=== PATIENT | female | born 1945 | race Caucasian/White ===

== ENCOUNTER 2019-04-04 14:03 | Outpatient (CLI) | payer MEDICARE, SELFPAY ==
--- NOTE | ~2019-04-04 | MM_ITS ---
EXAMINATION: MM screening [facility] BI w artemio HISTORY: Screening mammogram TECHNIQUE: Craniocaudal and mediolateral oblique 3-D tomosynthesis images were obtained and synthetic 2-D images were generated. CAD analysis was submitted and interpreted. COMPARISON: 10/19/2017, 09/02/2016, 08/07/2015 BREAST PARENCHYMAL COMPOSITION: The breasts are almost entirely fatty. FINDINGS: There are oil cysts of the upper inner left breast. There is no evidence of suspicious mass , calcification, or architectural distortion to suggest malignancy in either breast. There has been n o suspicious interval change. IMPRESSION: 1. No mammographic evidence of malignancy. 2. Recommend routine screening mammography in one year. BI-RADS Category 2: Benign finding(s). Reviewed, dictated and finalized at location A. O GAME CREATOR
== END 2019-04-04 14:04 | disposition home or self-care (01) ==
LOC: ANHIMG 14:07
PROVIDERS: PCP Emergency Medicine; Visit Provider Emergency Medicine
DX: Z12.31 Encounter for screening mammogram for malignant neoplasm of breast (principal)
CPT/HCPCS: 77063; 77067

== ENCOUNTER 2019-07-20 10:57 | Outpatient (CLI) | payer MEDICARE, SELFPAY ==
--- NOTE | 2019-07-20 11:13 | ECG_ITS ---
Measurements Intervals [place] Rate: 58 P: 62 MO: 149 QRS: 5 QRSD: 86 T: -16 QT: 401 QTc: 396 Interpretive Statements SINUS BRADYCARDIA LOW QRS VOLTAGE IN PRECORDIAL LEADS EARLY PRECORDIAL R/S TRANSITION ST-T WAVE ABNORMALITY IN ANTERIOR LEADS- CONSIDER ISCHEMIA BASELINE ARTIFACT- I, II, AVR, AVF ABNORMAL ECG Electronically Signed On 07-20-2019 12:42:59 CDT by Bubba Morales D.O.
== END 2019-07-20 10:58 | disposition home or self-care (01) ==
PROVIDERS: PCP Emergency Medicine; Visit Provider Emergency Medicine
DX: R00.2 Palpitations (principal)
CPT/HCPCS: 93005

== ENCOUNTER 2020-04-28 08:33 | Outpatient (CLI) | payer MEDICARE, SELFPAY ==
--- NOTE | ~2020-04-28 | MM_ITS ---
EXAMINATION: MM screening [facility] BI w artemio HISTORY: Screening TECHNIQUE: Craniocaudal and mediolateral oblique 3-D tomosynthesis images were obtained and synthetic 2-D images were generated. CAD analysis was submitted and interpreted. COMPARISON: Comparison to multiple prior studies sequentially, with oldest reviewed study dated 05/10. BREAST PARENCHYMAL COMPOSITION: The breasts are almost entirely fatty. FINDINGS: There is no evidence of suspicious mass, calcification, or architectural distortion to sugg est malignancy in either breast. There has been no suspicious interval change. IMPRESSION: 1. No mammographic evidence of malignancy. 2. Recommend routine screening mammography in one year. BI-RADS Category 1: Negative Reviewed, dictated and finalized at location A.
== END 2020-04-28 08:34 | disposition home or self-care (01) ==
LOC: ANHIMG 08:35
PROVIDERS: PCP Emergency Medicine; Visit Provider Emergency Medicine
DX: Z12.31 Encounter for screening mammogram for malignant neoplasm of breast (principal)
CPT/HCPCS: 77063; 77067

== ENCOUNTER 2020-06-09 10:02 | Outpatient (CLI) | payer MEDICARE, SELFPAY | END 2020-06-09 10:03 | disposition home or self-care (01) | LOC: ANHCOVIDVC 10:02 | PROVIDERS: PCP Emergency Medicine | DX: Z23 Encounter for immunization (principal) | CPT/HCPCS: 0001A; 91300 ==

== ENCOUNTER 2020-06-30 10:00 | Outpatient (CLI) | payer MEDICARE, SELFPAY | END 2020-06-30 10:01 | disposition home or self-care (01) | LOC: ANHCOVIDVC 10:00 | PROVIDERS: PCP Emergency Medicine | DX: Z23 Encounter for immunization (principal) | CPT/HCPCS: 0002A; 91300 ==

== ENCOUNTER 2021-02-25 09:29 | Outpatient (CLI) | payer MEDICARE, SELFPAY ==
--- NOTE | 2021-02-25 09:45 | ECG_ITS ---
Measurements Intervals [place] Rate: 59 P: 55 [place]: 144 QRS: -3 QRSD: 81 T: 5 QT: 389 QTc: 386 Interpretive Statements SINUS BRADYCARDIA LOW QRS VOLTAGE IN PRECORDIAL LEADS BORDERLINE ST-T WAVE ABNORMALITY- ANT/INF LEADS BASELINE WANDER- II, III BORDERLINE ECG Electronically Signed On 02-25-2021 10:05:20 [employer] by Bubba Morales D.O.
== END 2021-02-25 09:30 | disposition home or self-care (01) ==
PROVIDERS: PCP Emergency Medicine; Visit Provider Emergency Medicine
DX: R00.2 Palpitations (principal); R00.1 Bradycardia, unspecified
CPT/HCPCS: 93005

== ENCOUNTER 2021-06-12 13:28 | Emergency (ER) | payer MEDICARE, SELFPAY ==
--- NOTE | ~2021-06-12 | XR_ITS ---
EXAMINATION:XR cervical spine 4-5V DATE: 06/12/2021 14:04 INDICATION: Neck pain after fall TECHNIQUE: AP, lateral, lateral swimmers and odontoid views of the cervical spine are provided. COMPARISON: None FINDINGS: Alignment is normal. The odontoid is intact. No fracture is identified. The vertebral body heights are maintained. There is mild loss of intervertebral disc space height from C3-4 through C6-7 . Small degenerative osteophytes project from the anterior endplates of multiple vertebral bodies. 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 Prevertebral soft tissu es are normal. IMPRESSION: 1. Moderate cervical spondylosis without acute findings. Reviewed, dictated and finalized at location B.
[2021-06-12 13:35] VITALS: BP 136/65; PULSE 65; RESP 16; TEMP 36.3; O2SAT 98
--- NOTE | 2021-06-12 13:35 | ED.HEATRA ---
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 She states she slipped out of her shoe, sat down, and rolled backwards striking her head on the driveway pavement. She denies loss of consciousness. States she is starting to feel a headache at the base of her skull and some mild neck pain. She has a history of migraines and states this pain is minimal approximately 2 out of 10. She endorses having the sensation of chills which brought her to be evaluated. She states she had 1 episode of lightheadedness while checking in for her visit. She denies associated nausea, vomiting, confusion, unsteady gait, vision changes, tinnitus, numbness, weakness, tingling of the extremities. She has not taken anything for pain. She is not on anticoagulation. Related Data Home Medications Medication Instructions Recorded Confirmed flaxseed oil-omega 3,6,9-fatty See Rx Instructions .ROUTE .COMPLEX 07/18/19 acids 1,200 mg-540 mg-132 mg capsule vmlhqaztfkk-[id number]-gil C-Mn 500 See Rx Instructions .ROUTE .COMPLEX 07/18/19 mg-400 mg capsule Allergies Allergy/AdvReac Type Severity Reaction Status Date / Time codeine Allergy Unknown unknown Verified 02/25/21 09:14 Review of Systems Review of Systems: CONSTITUTIONAL: Denies body aches, fever EYES: Denies visual changes ENT: Denies rhinorrhea, congestion, sore throat, or otalgia. CARDIOVASCULAR: Denies chest pain, palpitations, or edema. RESPIRATORY: Denies cough or dyspnea. GASTROINTESTINAL: Denies abdominal pain, nausea, vomiting, or diarrhea. GENITOURINARY: Denies dysuria or hematuria. SKIN: Denies rash, itching, or wounds. MUSCULOSKELETAL: Denies back pain, joint pain, or myalgia. NEUROLOGIC: Endorses headache, denies numbness, tingling, or weakness, dizziness PSYCH: Denies depression or anxiety. All systems reviewed & are unremarkable except as noted in HPI and below PMFSH Past Medical History Medical History Hypertension Family History Family History Father Diabetes mellitus, Onset Age: 72 Mother Hypertension, Onset Age: 98 Social History Social History Social History: Patient does not drink caffeine or exercise. Smoking status: Never smoker Second hand tobacco smoke exposure: No Alcohol intake: never Substance use: never Substance use type: does not use Additional living arrangements comments: Gender identity (if verbalized by the patient): Female Sexual Orientation (if Verbalized by the Patient): Straight or Heterosexual Comments At time of signature, I have reviewed and agree with nursing past medical, surgical, social and family history unless otherwise noted. Please see nursing chart for further information. There is no relevant family history pertinent to the presenting complaint Exam Narrative: GENERAL: Well-appearing HEAD: Normocephalic, atraumatic. EYES: PERRLA, EOMI. ENT: Mucous membranes pink and moist. No rhinorrhea. TMs normal bilaterally. NECK: Normal AROM. Supple. No vertebral point tenderness. Full range of motion. CHEST: No respiratory distress. Clear to auscultation. HEART: Regular rate and rhythm. No murmur appreciated. Normal peripheral pulses. ABDOMEN: Soft, nontender, nondistended, normal active bowel sounds. MUSCULOSKELETAL: No bony tenderness. EXTREMITIES: Normal range of motion. No edema. SKIN: Warm, dry, no rash. Capillary refill normal. Normal skin turgor. NEURO:No focal defici
[2021-06-12] MEDS: ACETAMINOPHEN 500 MG TABLET 1000 MG PO (13:53)
== END 2021-06-12 14:53 | disposition home or self-care (01) ==
PROVIDERS: Emergency Provider Nurse Practitioner Family; PCP Emergency Medicine
DX: S00.03XA Contusion of scalp, initial encounter (principal); W01.0XXA Fall on same level from slipping, tripping and stumbling without subsequent striking against object, initial encounter; I10 Essential (primary) hypertension
CPT/HCPCS: 72050; 99213; A9270; G0463

== ENCOUNTER 2021-07-01 09:11 | Outpatient (CLI) | payer MEDICARE, SELFPAY ==
--- NOTE | ~2021-07-01 | MM_ITS ---
EXAMINATION: MM screening [facility] BI w artemio HISTORY: Screening mammogram TECHNIQUE: Craniocaudal and mediolateral oblique 3-D tomosynthesis images were obtained and synthetic 2-D images were generated. CAD analysis was submitted and interpreted. COMPARISON: 04/28/2020, 04/04/2019 BREAST PARENCHYMAL COMPOSITION: The breasts are almost entirely fatty. FINDINGS: Oil cysts are again noted in the left breast. There is no suspicious mass, calcification, o r architectural distortion to suggest malignancy in either breast. There has been no suspicious inter milena change. IMPRESSION: 1. No mammographic evidence of malignancy. 2. Recommend routine screening mammography in one year. BI-RADS Category 2: Benign finding(s). Reviewed, dictated and finalized at location A.
== END 2021-07-01 09:12 | disposition home or self-care (01) ==
LOC: ANHIMG 09:14
PROVIDERS: PCP Emergency Medicine; Visit Provider Emergency Medicine
DX: Z12.31 Encounter for screening mammogram for malignant neoplasm of breast (principal)
CPT/HCPCS: 77063; 77067

== ENCOUNTER → 2021-08-22 00:19 | Outpatient (CLI) | payer MEDICARE, SELFPAY ==
[2021-08-22 11:13] LABS: SARS-CoV-2 RNA PCR Negative
== END ==
PROVIDERS: PCP Emergency Medicine; Visit Provider Emergency Medicine
DX: R11.0 Nausea (principal); R50.9 Fever, unspecified; R51.9 Headache, unspecified; R53.83 Other fatigue; Z20.822 Contact with and (suspected) exposure to COVID-19
CPT/HCPCS: C9803; U0003; U0005

== ENCOUNTER 2021-09-11 16:15 | Emergency (ER) | payer MEDICARE, SELFPAY ==
[2021-09-11 16:24] VITALS: BP 116/73; PULSE 102; RESP 16; TEMP 37.3; O2SAT 96
--- NOTE | 2021-09-11 16:36 | ED.FEMALEGU ---
HPI - Female Genitourinary General Chief complaint: Urogenital-Female Stated complaint: poss uti Time Seen by Provider: 09/11/21 16:36 Source: patient Mode of arrival: ambulatory Limitations: no limitations History of Present Illness HPI Narrative: 76 yo F presents with c/o dysuria starting yesterday evening. Concerned she has another UTI. Was just treated by PCP for UTI 08/19. Took macrobid. Denies fever/chills. No N/V. No ABD or back pain. All systems reviewed and negative except as noted above. Related Data Home Medications Medication Instructions Recorded Confirmed flaxseed oil-omega 3,6,9-fatty See Rx Instructions .Route .COMPLEX 07/18/19 07/07/21 acids 1,200 mg-540 mg-132 mg capsule [id number]-[id number] C-Mn 500 See Rx Instructions .Route .COMPLEX 07/18/19 07/07/21 mg-400 mg capsule (Glucosamine Chondroitin Maximum Strength) calcium carbonate 500 mg-vitamin tablet PO BID 07/07/21 07/07/21 D3 15 mcg (600 unit) tablet magnesium 250 mg tablet 250 mg PO DAILY 07/07/21 07/07/21 nut. tx for PKU, no.49 2 gram-34 ea PO BID 07/07/21 07/07/21 kcal/100 mL oral liquid (Glytactin Restore 10 PE) Allergies Allergy/AdvReac Type Severity Reaction Status Date / Time codeine Allergy Unknown unknown Verified 09/11/21 16:40 Review of Systems Review of Systems: CONSTITUTIONAL: Denies fever, chills, or sweats. EYES: Denies visual changes, redness, or discharge. ENT: Denies rhinorrhea, congestion, sore throat, or otalgia. CARDIOVASCULAR: Denies chest pain, palpitations, or edema. RESPIRATORY: Denies cough or dyspnea. GASTROINTESTINAL: Denies abdominal pain, nausea, vomiting, or diarrhea. GENITOURINARY: Reports dysuria and intermittent hematuria. SKIN: Denies rash or itching. MUSCULOSKELETAL: Denies back pain, joint pain, or myalgia. NEUROLOGIC: Denies headache, numbness, or weakness. PSYCHIATRIC: Denies anxiety or depression. All other systems reviewed are negative, except as documented in HPI. [facility] Past Medical History Medical History Hypertension Migraine Surgical History Surgical History History of cholecystectomy History of endometrial ablation History of salpingo-oophorectomy Family History Family History Father Diabetes mellitus, Onset Age: 72 Mother Hypertension, Onset Age: 98 Social History Social History Social History: Patient does not drink caffeine or exercise. Smoking status: Never smoker Second hand tobacco smoke exposure: No Alcohol intake: never Substance use: never Substance use type: does not use Additional living arrangements comments: Gender identity (if verbalized by the patient): Female Sexual Orientation (if Verbalized by the Patient): Straight or Heterosexual Comments At time of signature, agree with nursing past medical, surgical, social and family history. There is no relevant family history pertinent to the presenting complaint. Exam Narrative: GENERAL: This is a well-nourished, well-developed patient, in no apparent distress. HEAD: normocephalic, atraumatic. EYES: PERRL. Sclera clear/white. Vision is grossly intact. EARS: External ears normal NOSE: External nose normal NECK: Neck supple, non-tender without lymphadenopathy, masses or thyromegaly. CARDIOVASCULAR: Regular rate and rhythm without murmurs, gallops, or rubs. RESPIRATORY: Clear to auscultation. Breath sounds equal bilaterally. No wheezes, rales, or rhonchi. SKIN: warm, Dry, intact with no suspicious lesions or rash, good texture and turgor. NEURO: awake, alert, and oriented to person, place and time. There were no obvious focal neurologic abnormalities. EXTREMITIES: No joint tenderness, effusion, or edema noted. Course Course
== END 2021-09-11 16:56 | disposition home or self-care (01) ==
PROVIDERS: Emergency Provider Nurse Practitioner Family; PCP Emergency Medicine
DX: N39.0 Urinary tract infection, site not specified (principal); I10 Essential (primary) hypertension
CPT/HCPCS: 81003; 87086; 99213; G0463

== ENCOUNTER 2021-10-18 09:42 | Emergency (ER) | payer MEDICARE, SELFPAY ==
--- NOTE | 2021-10-18 09:46 | ED.URI ---
HPI - URI/Sore Throat General Chief Complaint: Upper Respiratory Infection Stated Complaint: sinus infection Time Seen by Provider: 10/18/21 09:47 Source: patient Mode of arrival: ambulatory Limitations: no limitations History of Present Illness HPI Narrative: Ms. Holguin is a 76-year-old female patient presenting to the clinic today with complaints of possible sinus infection x1 week. She reports she has had a lot of sinus pressure on the right side of her face that is causing some dental pain and pressure. She denies any fever or chills. She is reports that she started out with a runny nose. She denies any known exposure to anybody with COVID, flu, or strep. MD elicited complaint: nasal congestion and sinus pain Related Data Allergies Allergy/AdvReac Type Severity Reaction Status Date / Time codeine Allergy Unknown unknown Verified 10/18/21 09:56 Review of Systems Review of Systems: Pertinent positives per HPI. Patient denies any fever, chills, rash, headache, visual changes, dizziness, cough, shortness of breath, chest pain, palpitations, nausea, vomiting, diarrhea, constipation, abdominal pain, or any urinary issues. [facility] Past Medical History Medical History Hypertension Migraine Surgical History Surgical History History of cholecystectomy History of endometrial ablation History of salpingo-oophorectomy Family History Family History Father Diabetes mellitus, Onset Age: 72 Mother Hypertension, Onset Age: 98 Social History Social History Social History: Patient does not drink caffeine or exercise. Smoking status: Never smoker Second hand tobacco smoke exposure: No Alcohol intake: never Substance use: never Substance use type: does not use Additional living arrangements comments: Gender identity (if verbalized by the patient): Female Sexual Orientation (if Verbalized by the Patient): Straight or Heterosexual Comments At the time of my signature, I reviewed and agree with the nursing past medical, surgical, social, and family history. There is no relevant family history pertinent to the patient complaint. Exam Narrative: General: Well-developed, well nourished, in no apparent distress Head: Normocephalic, atraumatic Eyes: Pupils equally round and reactive to light bilaterally, EOM intact, sclera and conjunctive clear, no discharge, lids normal Ears: TMs intact and clear, ear canals clear, no drainage, grossly hearing normal. Nose: Nares patent, clear nasal discharge, moderate inflammation, sinus tenderness to the right ethmoid and maxillary sinuses Mouth: Oral pharynx without lesions or masses, good dentition, MMM. Postnasal drip Neck: Supple, trachea midline, no enlargement of anterior or posterior cervical nodes, no thyroid masses or goiter palpable. Cardio: Regular rate and rhythm, s1 and s2 normal, no murmur appreciated. Resp: Clear to auscultation bilaterally, no rhonchi, rales, wheezing or rubs Course Course Emergency Course: Portions of this record may have been created with voice recognition software. Level of Care: Express Care Visit Vital Signs Vital signs: Vital signs reviewed MDM - URI/Sore Throat MDM Narrative Medical decision making narrative: At the time of visit patient was resting comfortably on the exam table. She has sinus tenderness x1 week with nasal congestion. Reports that she is going out on a trip. Discussed that we do not normally treat sinusitis until after 10 days however we will go ahead and give her a prescription for some Augmentin and prednisone and she can start up the prednisone if not better in 3 days she can begin the Augmentin. She voiced understanding of this and
[2021-10-18 09:48] VITALS: BP 118/55; PULSE 62; RESP 16; TEMP 36.8; O2SAT 100
== END 2021-10-18 10:08 | disposition home or self-care (01) ==
PROVIDERS: Emergency Provider Nurse Practitioner Family; PCP Emergency Medicine
DX: J01.00 Acute maxillary sinusitis, unspecified (principal); I10 Essential (primary) hypertension
CPT/HCPCS: 99213; G0463

== ENCOUNTER 2022-03-22 08:06 | Emergency (ER) | payer MEDICARE, SELFPAY ==
--- NOTE | 2022-03-22 08:13 | ED.URI ---
HPI - URI/Sore Throat General Chief Complaint: Upper Respiratory Infection Stated Complaint: sore throat Time Seen by Provider: 03/22/22 08:13 Source: patient and RN notes reviewed History of Present Illness HPI Narrative: patient is a 77-year-old female who presents to urgent care with complaints of a sore throat. Patient states that it started yesterday. Patient also reports of a fever of 102 F yesterday. Patient reports of a headache today. States that she did have a positive exposure to strep, her grandson. No other acute complaints. No acute distress noted. Patient aware of the plan of care. Some parts of this dictation were generated by voice recognition software and may contain typographical and/or grammatical inaccuracies. Related Data Allergies Allergy/AdvReac Type Severity Reaction Status Date / Time codeine Allergy Unknown unknown Verified 03/22/22 08:18 Review of Systems Review of Systems: CONSTITUTIONAL: Denies fever, chills, or sweats. EYES: Denies visual changes, redness, or discharge. ENT: Denies rhinorrhea, congestion, otalgia. Reports of sore throat CARDIOVASCULAR: Denies chest pain, palpitations, or edema. RESPIRATORY: Denies cough or dyspnea. GASTROINTESTINAL: Denies abdominal pain, nausea, vomiting, or diarrhea. GENITOURINARY: Denies dysuria or hematuria. SKIN: Denies rash or itching. MUSCULOSKELETAL: Denies back pain, joint pain, or myalgia. NEUROLOGIC: Denies headache, numbness, or weakness. All other systems reviewed are negative, except as documented in HPI. [facility] Past Medical History Medical History Hypertension Migraine Surgical History Surgical History History of cholecystectomy History of endometrial ablation History of salpingo-oophorectomy Family History Family History Father Diabetes mellitus, Onset Age: 72 Mother Hypertension, Onset Age: 98 Social History Social History Social History: Patient does not drink caffeine or exercise. Smoking status: Never smoker Second hand tobacco smoke exposure: No Alcohol intake: current Alcohol use details: rarely Substance use: never Substance use type: does not use Living arrangements: with family Additional living arrangements comments: Occupation/Education: retired Gender identity (if verbalized by the patient): Female Sexual Orientation (if Verbalized by the Patient): Straight or Heterosexual Comments At the time of my signature, I reviewed and agree with the nursing past medical, surgical, social, and family history. There is no relevant family history pertinent to the patient complaint. Exam Narrative: GENERAL: This is a well-nourished, well-developed patient, in no apparent distress. HEAD: normocephalic, atraumatic. EYES: PERRL. Sclera clear/white. Vision is grossly intact. EARS: External ears normal, auditory canals clear and without drainage, TMs normal without perforation. Hearing grossly intact. NOSE: External nose normal with no obvious nasal discharge, nares without redness, no rhinorrhea. THROAT: Mucous membranes moist, Mild erythema to posterior pharynx with mild postnasal drainage NECK: Neck supple, mild tender left submandibular lymphadenopathy CARDIOVASCULAR: Regular rate and rhythm without murmurs, gallops, or rubs. RESPIRATORY: Clear to auscultation. Breath sounds equal bilaterally. No wheezes, rales, or rhonchi. SKIN: warm, intact with no suspicious lesions or rash, good texture and turgor. NEURO: awake, alert, and oriented to person, place and time. There were no obvious focal neurologic abnormalities. EXTREMITIES: No clubbing, cyanosis, or edema. Course Course Level of Care: Express Care Visit Vital Signs Vital signs: Vital Si
[2022-03-22 08:20] VITALS: BP 152/44; PULSE 104; RESP 18; TEMP 37; O2SAT 99
== END 2022-03-22 08:33 | disposition home or self-care (01) ==
PROVIDERS: Emergency Provider Nurse Practitioner Family; PCP Emergency Medicine
DX: J02.0 Streptococcal pharyngitis (principal); I10 Essential (primary) hypertension
CPT/HCPCS: 87880; 99213; G0463

== ENCOUNTER 2022-05-31 11:34 | Emergency (ER) | payer MEDICARE, SELFPAY ==
--- NOTE | 2022-05-31 11:43 | ED.NECK ---
HPI - Neck Pain/Injury General Chief Complaint: Neck Pain/Injury Stated Complaint: Neck Pain Time Seen by Provider: 05/31/22 11:46 Source: patient and RN notes reviewed History of Present Illness HPI Narrative: Patient is a 77-year-old female who presents to the Urgent Care with complaints of right-sided neck pain. Patient states her granddaughter ran into her and she picked her up either or Tuesday and she has had the pain since then. Denies any known injury. Denies any vision change or headaches. Patient has been taking ibuprofen for the pain. No other acute complaints. No acute distress noted. Patient aware of the plan of care. Some parts of this dictation were generated by voice recognition software and may contain typographical and/or grammatical inaccuracies. Related Data Allergies Allergy/AdvReac Type Severity Reaction Status Date / Time codeine Allergy Unknown unknown Verified 03/22/22 08:18 Review of Systems Review of Systems: CONSTITUTIONAL: Denies fever, chills, or sweats. EYES: Denies visual changes, redness, or discharge. ENT: Denies rhinorrhea, congestion, sore throat, or otalgia. Reports of right-sided neck pain/stiffness CARDIOVASCULAR: Denies chest pain, palpitations, or edema. RESPIRATORY: Denies cough or dyspnea. GASTROINTESTINAL: Denies abdominal pain, nausea, vomiting, or diarrhea. GENITOURINARY: Denies dysuria or hematuria. SKIN: Denies rash or itching. MUSCULOSKELETAL: Denies back pain, joint pain, or myalgia. NEUROLOGIC: Denies headache, numbness, or weakness. All other systems reviewed are negative, except as documented in HPI. [facility] Past Medical History Medical History Hypertension Migraine Surgical History Surgical History History of cholecystectomy History of endometrial ablation History of salpingo-oophorectomy Family History Family History Father Diabetes mellitus, Onset Age: 72 Mother Hypertension, Onset Age: 98 Social History Social History Social History: Patient does not drink caffeine or exercise. Smoking status: Never smoker Second hand tobacco smoke exposure: No Alcohol intake: current Alcohol use details: rarely Substance use: never Substance use type: does not use Living arrangements: with family Additional living arrangements comments: Occupation/Education: retired Gender identity (if verbalized by the patient): Female Sexual Orientation (if Verbalized by the Patient): Straight or Heterosexual Comments At the time of my signature, I reviewed and agree with the nursing past medical, surgical, social, and family history. There is no relevant family history pertinent to the patient complaint. Exam Narrative: GENERAL: This is a well-nourished, well-developed patient, in no apparent distress. HEAD: normocephalic, atraumatic. EYES: PERRL. Sclera clear/white. Vision is grossly intact. EARS: External ears normal NOSE: External nose normal with no obvious nasal discharge, nares without redness, no rhinorrhea. THROAT: Mucous membranes moist NECK: Range of motion limited with right flexion due to pain. Left flexion, chin tuck and head tilt all within normal limits without exacerbated pain. No crepitus or stepoff to C-spine. Reproducible right cervical muscle tenderness SKIN: warm, intact with no suspicious lesions or rash, good texture and turgor. NEURO: awake, alert, and oriented to person, place and time. There were no obvious focal neurologic abnormalities. EXTREMITIES: No clubbing, cyanosis, or edema. Course Course Level of Care: Express Care Visit Vital Signs Vital signs: Vital Signs Temperature 97.9 F 05/31/22 11:46 Pulse Rate 58 L 05/31/22 11:46 Respiratory Rate 16 05/15
[2022-05-31 11:46] VITALS: BP 139/66; PULSE 58; RESP 16; TEMP 36.6; O2SAT 100
== END 2022-05-31 12:05 | disposition home or self-care (01) ==
PROVIDERS: Emergency Provider Nurse Practitioner Family; PCP Emergency Medicine
DX: S16.1XXA Strain of muscle, fascia and tendon at neck level, initial encounter (principal); X50.9XXA Other and unspecified overexertion or strenuous movements or postures, initial encounter; I10 Essential (primary) hypertension
CPT/HCPCS: 99213; G0463

== ENCOUNTER 2022-07-09 16:00 | Emergency (ER) | payer MEDICARE, SELFPAY ==
[2022-07-09 16:08] VITALS: BP 128/58; PULSE 59; RESP 16; TEMP 36.8; O2SAT 98
--- NOTE | 2022-07-09 16:21 | ED.GENADULT ---
HPI - General Adult General Chief complaint: Skin/Abscess/Foreign Body Stated complaint: Skin Sore/Nausea Time Seen by Provider: 07/09/22 16:21 Source: patient, RN notes reviewed and old records reviewed Mode of arrival: ambulatory Limitations: no limitations History of Present Illness HPI narrative: 77-year-old female presents to the [facility] with a sore to the right labia that started Tuesday or Tuesday. States a little bit better today. States that she has been taking hot baths. Pain is just getting worse. Onset (ago): day(s) Related Data Allergies Allergy/AdvReac Type Severity Reaction Status Date / Time codeine Allergy Unknown unknown Verified 07/09/22 16:16 Review of Systems Review of Systems: All systems reviewed & are unremarkable except as noted in HPI and below Constitutional: Constitutional: Reports no additional constitutional complaints Eyes: Eyes: Reports no additional eye complaints ENT: Reports system reviewed and no additional complaints, except as documented Cardiovascular: Cardiovascular: Reports no additional cardiovascular complaints, Denies chest pain and Denies dyspnea Respiratory: Respiratory: Reports no additional respiratory complaints, Denies chest congestion, Denies cough and Denies dyspnea Gastrointestinal: Gastrointestinal: Reports no additional gastrointestinal complaints, Denies abdominal pain, Denies nausea and Denies vomiting Musculoskeletal: Musculoskeletal: Reports no additional musculoskeletal complaints Integumentary/Breasts: Skin/Breast: Reports as per HPI Neurologic: Reports system reviewed and no additional complaints, except as documented Psychiatric: Psychiatric: Reports no additional psychiatric complaints Allergic/Immunologic: Allergic/Immunologic: Reports no additional allergic/immunologic complaints PMF Past Medical History Medical History Hypertension Migraine Surgical History Surgical History History of cholecystectomy History of endometrial ablation History of salpingo-oophorectomy Family History Family History Father Diabetes mellitus, Onset Age: 72 Mother Hypertension, Onset Age: 98 Social History Social History Social History: Patient does not drink caffeine or exercise. Smoking status: Never smoker Second hand tobacco smoke exposure: No Alcohol intake: current Alcohol use details: rarely Substance use: never Substance use type: does not use Living arrangements: with family Additional living arrangements comments: Occupation/Education: retired Gender identity (if verbalized by the patient): Female Sexual Orientation (if Verbalized by the Patient): Straight or Heterosexual Comments At the time of my signature, I reviewed and agree with the nursing past medical, surgical, social, and family history. There is no relevant family history pertinent to the patient complaint. Exam Const: General: cooperative, healthy appearing, comfortable, no acute distress, well developed, alert and well nourished Nutritional Appearance: well nourished Orientation/consciousness: patient oriented x3 Limitations: no limitations HENMT: Head: normal to inspection Ears: hearing grossly normal bilaterally and external ears normal Face/Nose/Sinus: Normal external nose present, Normal nares present, Normal nasal mucous membranes and turbinates present and normal facial exam Face and sinus: normal facial exam Eyes: General: appearance normal, both eyes and all related structures Alignment and Position: alignment normal Periorbital: periorbital findings normal Pupils: Equal, round and reactive pupils present EOM: EOMs intact bilaterally Neck: Neck: normal visual inspection, full ROM, no lymphadeno
== END 2022-07-09 17:02 | disposition home or self-care (01) ==
LOC: EXPBETH 16:04
PROVIDERS: Emergency Provider Nurse Practitioner; PCP Emergency Medicine
DX: N76.4 Abscess of vulva (principal); I10 Essential (primary) hypertension
CPT/HCPCS: 56405; 87070; 87205; 99213; G0463

== ENCOUNTER 2022-08-03 09:51 | Emergency (ER) | payer MEDICARE, SELFPAY ==
--- NOTE | 2022-08-03 09:58 | ED.FEMALEGU ---
HPI - Female Genitourinary General Chief complaint: Urogenital-Female Stated complaint: Urinary Problem Source: patient and RN notes reviewed History of Present Illness HPI Narrative: 77-year-old female presents to Urgent Care complains of burning with urination and hematuria. Patient states she noticed the burning yesterday and states the hematuria started today. Patient denies any fevers, chills vomiting, abdominal pain, flank pain, or back pain. Some parts of this dictation were generated by voice recognition software and may contain typographical and/or grammatical inaccuracies. Related Data Allergies Allergy/AdvReac Type Severity Reaction Status Date / Time codeine Allergy Unknown unknown Verified 07/09/22 16:16 Review of Systems Review of Systems: Pertinent positives and pertinent negatives per HPI. PMFSH Past Medical History Medical History Hypertension Migraine Surgical History Surgical History History of cholecystectomy History of endometrial ablation History of salpingo-oophorectomy Family History Family History Father Diabetes mellitus, Onset Age: 72 Mother Hypertension, Onset Age: 98 Social History Social History Social History: Patient does not drink caffeine or exercise. Smoking status: Never smoker Second hand tobacco smoke exposure: No Alcohol intake: current Alcohol use details: rarely Substance use: never Substance use type: does not use Living arrangements: with family Additional living arrangements comments: Occupation/Education: retired Gender identity (if verbalized by the patient): Female Sexual Orientation (if Verbalized by the Patient): Straight or Heterosexual Comments At the time of my signature, I reviewed and agree with the nursing past medical, surgical, social, and family history. There is no relevant family history pertinent to the patient complaint. Exam Narrative: GENERAL: This is a well-nourished, well-developed patient, in no apparent distress. HEAD: normocephalic, atraumatic. EYES: Sclera clear/white. Vision is grossly intact. EARS: External ears normal, auditory canals clear and without drainage. Hearing grossly intact. NOSE: External nose normal with no obvious nasal discharge, nares without redness, no rhinorrhea. THROAT: Mucous membranes moist, posterior pharynx clear. NECK: Neck supple, non-tender without lymphadenopathy, masses or thyromegaly. CARDIOVASCULAR: Regular rate and rhythm without murmurs, gallops, or rubs. RESPIRATORY: Clear to auscultation. Breath sounds equal bilaterally. No wheezes, rales, or rhonchi. GASTROINTESTINAL: Abdomen soft, non-tender, nondistended. Bowel sounds are active. No hepato-splenomegaly, or palpable masses. No guarding. SKIN: warm, intact with no suspicious lesions or rash, good texture and turgor. NEURO: awake, alert, and oriented to person, place and time. There were no obvious focal neurologic abnormalities. Course Course Level of Care: Express Care Visit Vital Signs Vital signs: Vital Signs Temperature 97.4 F L 08/03/22 10:03 Pulse Rate 62 08/03/22 10:03 Respiratory Rate 16 08/03/22 10:03 Blood Pressure 145/69 H 08/03/22 10:03 Pulse Oximetry 99 08/03/22 10:03 Oxygen Delivery Room Air 08/03/22 10:03 Temperature 97.4 F L 08/03/22 10:03 Pulse Rate 62 08/03/22 10:03 Respiratory Rate 16 08/03/22 10:03 Blood Pressure 145/69 H 08/03/22 10:03 Pulse Oximetry 99 08/03/22 10:03 Oxygen Delivery Room Air 08/03/22 10:03 Reviewed MDM - Female Genitourinary MDM Narrative Medical decision making narrative: We will send a urine culture off to the lab; if the culture identifies an organism that the prescribed antib
[2022-08-03 10:03] VITALS: BP 145/69; PULSE 62; RESP 16; TEMP 36.3; O2SAT 99
== END 2022-08-03 10:24 | disposition home or self-care (01) ==
PROVIDERS: Emergency Provider Nurse Practitioner Family; PCP Emergency Medicine
DX: N39.0 Urinary tract infection, site not specified (principal); I10 Essential (primary) hypertension
CPT/HCPCS: 81003; 87077; 87086; 87186; 99213; G0463

== ENCOUNTER 2022-11-24 07:48 | Outpatient (CLI) | payer MEDICARE, SELFPAY ==
--- NOTE | ~2022-11-24 | MM_ITS ---
EXAMINATION: MM screening lillian BI w artemio HISTORY: Screening mammogram TECHNIQUE: Craniocaudal and mediolateral oblique 3-D tomosynthesis images were obtained and synthetic 2-D images were generated. CAD analysis was submitted and interpreted. COMPARISON: 07/01/2021, 04/28/2020 bilateral screening mammogram examinations BREAST PARENCHYMAL COMPOSITION: The breasts are almost entirely fatty. FINDINGS: There is no evidence of suspicious mass, calcification, or architectural distortion to sugg est malignancy in either breast. There has been no suspicious interval change. IMPRESSION: 1. No mammographic evidence of malignancy. 2. Recommend routine screening mammography in one year. BI-RADS Category 1: Negative Reviewed, dictated and finalized at location A.
== END 2022-11-24 07:49 | disposition home or self-care (01) ==
LOC: ANHIMG 07:50
PROVIDERS: PCP Emergency Medicine; Visit Provider Emergency Medicine
DX: Z12.31 Encounter for screening mammogram for malignant neoplasm of breast (principal)
CPT/HCPCS: 77063; 77067

== ENCOUNTER 2023-02-02 16:30 | Emergency (ER) | payer MEDICARE, SELFPAY ==
--- NOTE | 2023-02-02 16:32 | ED.URI ---
HPI - URI/Sore Throat General Chief Complaint: Upper Respiratory Infection Stated Complaint: cough/sob/in chest Time Seen by Provider: 02/02/23 16:46 Source: patient and RN notes reviewed Mode of arrival: ambulatory Limitations: no limitations History of Present Illness HPI Narrative: 77-year-old female presents concern for ongoing cough for week and a half. Reports over the last several days she has been having exertional dyspnea. She denies fever, body aches, chills, sweats. MD elicited complaint: cough Related Data Home Medications Medication Instructions Recorded Confirmed nadolol 40 mg tablet 40 mg PO DAILY 02/02/23 02/02/23 Allergies Allergy/AdvReac Type Severity Reaction Status Date / Time codeine Allergy Unknown unknown Verified 10/06/22 10:21 Review of Systems Review of Systems: CONSTITUTIONAL: Denies malaise, chills, sweats, or fever. EYES: Denies visual changes, redness, or discharge. ENT: Reports rhinorrhea, congestion. Denies sinus pain, otalgia and sore throat. CARDIOVASCULAR: Denies chest pain, palpitations, or edema. RESPIRATORY: Reports cough, exertional dyspnea. GASTROINTESTINAL: Denies abdominal pain, nausea, vomiting, diarrhea SKIN: Denies rash or itching. MUSCULOSKELETAL: Denies myalgia. NEUROLOGIC: Denies headache. All systems reviewed & are unremarkable except as noted in HPI and below PMFSH Past Medical History Medical History Hypertension Migraine Surgical History Surgical History History of cholecystectomy History of endometrial ablation History of salpingo-oophorectomy Family History Family History Father Diabetes mellitus, Onset Age: 72 Mother Hypertension, Onset Age: 98 Social History Social History Social History: Patient does not drink caffeine or exercise. Smoking status: Never smoker Second hand tobacco smoke exposure: No Alcohol intake: current Alcohol use details: rarely Substance use: never Substance use type: does not use Lack of Transportation: No Lack of Food: Never True Current Housing: I Have Housing Concerned About Future Housing: No Difficulty Paying Gas/Electric Bills: No Difficulty Paying for Meds: No Currently Unemployed: No Education: Bachelor's Degree Difficulty w/ Childcare or Family Care: No Living arrangements: with family Additional living arrangements comments: Occupation/Education: retired Gender identity (if verbalized by the patient): Female Sexual Orientation (if Verbalized by the Patient): Straight or Heterosexual Comments At time of signature, agree with nursing past medical, surgical, social and family history. There is no relevant family history pertinent to the presenting complaint Exam Narrative: GENERAL: Well-appearing, well-nourished, and in no acute distress. HEAD: Normocephalic EYES: PERRLA, conjunctivae clear ENT: Nares clear, turbinates edematous and erythematous, clear discharge. Mucous membranes moist. TM pearly burks with dull light reflex bilaterally; no tragal tenderness. Oropharynx not erythematous without lesions. Tonsils not enlarged and without exudate, no drooling, no hoarseness, no trismus, uvula midline. NECK: Supple. No lymphadenopathy CHEST: Clear to auscultation, breath sounds equal. No wheezing, rhonchi, rales, or stridor. No respiratory distress, speaks in full sentences. HEART: Regular rate and rhythm. No murmur heard. SKIN: Warm, dry, no rash. NEURO: Alert and oriented x3. PSYCH: Normal mood and affect Course Course Emergency Course: Patient is aware of diagnosis, understands and agrees to treatment plan. Anticipatory guidance given. Patient agrees to follow-up as directed and is aware of reasons to see
[2023-02-02 16:37] VITALS: BP 124/74; PULSE 69; RESP 16; TEMP 36.3; O2SAT 96
== END 2023-02-02 17:00 | disposition home or self-care (01) ==
PROVIDERS: Emergency Provider Nurse Practitioner; PCP Emergency Medicine
DX: J40 Bronchitis, not specified as acute or chronic (principal); I10 Essential (primary) hypertension
CPT/HCPCS: 99213; G0463

== ENCOUNTER 2023-03-15 08:44 | Outpatient (CLI) | payer MEDICARE, SELFPAY ==
--- NOTE | ~2023-03-15 | DEXA_ITS ---
Bone Density Report Name: BABITA SOTO Age: 78 Sex: Female Ethnicity: White Date of : 1945 Indication: postmenopausal; screening for osteoporosis; hysterectomy; Referring Provider: DORA LAMAR Study: Bone densitometry was performed. Exam Date: March 15, 2023 Accession number: [id number] Bone Density: Region BMD T-score Z-score Classification AP Spine(L1-L4) 1.239 1.7 4.2 Normal Femoral Neck (Left) 0.761 -0.8 1.3 Normal Total Hip (Left) 0.922 -0.2 1.7 Normal Femoral Neck (Right) 0.760 -0.8 1.3 Normal Total Hip (Right) 0.973 0.3 2.1 Normal Total Hip Mean 0.947 0.1 1.9 Normal World Health Organization criteria for BMD impression classify patients as: Normal (T-score at or above -1.0), Osteopenia (T-score between -1.0 and -2.5), or Osteoporosis (T-score at or below -2.5). 10-year Fracture Risk: FRAX not reported because: All T-scores for Spine Total, Hip Total, Femoral Neck at or above -1.0 Previous Exams: Region Exam Age BMD T-score BMD Change BMD Change Date g/cm2 vs Baseline vs Previous AP Spine (L1-L4) 03/15/2023 78 1.239 1.7 0.024 (2.0%)# 0.025 (2.1%)# 08/07/2015 70 1.213 1.5 -0.001 (-0.1%) -0.001 (-0.1%) 02/16/2011 65 1.214 1.5 Total Hip(Left) 03/15/2023 78 0.922 -0.2 -0.113 (-10.9% -0.024 (-2.6%) 10/19/2017 72 0.946 0.0 -0.088 (-8.5%) -0.036 (-3.7%) 08/07/2015 70 0.982 0.3 -0.052 (-5.0%) -0.052 (-5.0%) 02/16/2011 65 1.034 0.8 Total Hip(Right) 03/15/2023 78 0.973 0.3 -0.050 (-4.9%) 0.012 (1.2%) 10/19/2017 72 0.961 0.2 -0.062 (-6.0%) 0.011 (1.1%)# 08/07/2015 70 0.951 0.1 -0.072 (-7.0%) -0.072 (-7.0%) 02/16/2011 65 1.023 0.7 *Denotes significance at 95% confidence level, LSC for AP Spine = 0.022 g/cm2, LSC for Total Hip = 0.027 g/cm2 # Denotes dissimilar scan types or analysis methods Clinical Information Provided by Patient: Has used the following medications: Calcium Has the following medical conditions: Hysterectomy Patient maximum height was 65 Menopause Age: 52 No regular weight bearing exercise Drinks caffeinated beverages Onset of menses at age 15 Number of children 2 Impression: The patient has normal bone mass. No significant bone loss was observed. Discussion: BONE DENSITY IS ABOVE THE MINIMUM DESIRABLE LEVEL AT ALL SKELETAL SITES TESTED. This patient?s bone mineral density is above the minimum desirable level (T-score -1.0 or better) at all sites measured. The patient should follow a healthful lifest
== END 2023-03-15 08:45 | disposition home or self-care (01) ==
PROVIDERS: PCP Emergency Medicine; Visit Provider Emergency Medicine
DX: N95.9 Unspecified menopausal and perimenopausal disorder (principal)
CPT/HCPCS: 77080

== ENCOUNTER 2023-06-18 22:06 | Inpatient (IN) | payer MEDICARE, SELFPAY ==
--- NOTE | ~2023-06-18 | CT_ITS ---
EXAMINATION: CT abdomen pelvis w con DATE: 06/19/2023 00:12 INDICATION: Abdominal pain. TECHNIQUE: Computed tomography (CT) of the abdomen and pelvis was performed with 100 mL Omnipaque 350 intravenous contrast. Automated exposure control and iterative reconstruction technique were employe d. The dose-length product was 498.24 mGy-cm. COMPARISON: CT abdomen and pelvis 10/19/2015 FINDINGS: The visualized portions of the lung bases demonstrate mild atelectasis. Calcified left lung nodules are consistent with old granulomatous disease. No pleural effusion. The heart size is normal . No pericardial effusion. There is a small sliding hiatal hernia. There is diffuse hepatic steatosis . There are changes of cholecystectomy. Calcifications in the spleen are consistent with old granulom atous disease. The pancreas and right adrenal gland are normal. There is a 1.8 cm mass in left adrena l gland measuring soft tissue attenuation without change, likely an adenoma. There are cysts in the k idneys measuring up to 2.1 cm on the left. There are scattered diverticula in the colon. There is fat stranding around the sigmoid colon, consistent with diverticulitis. The appendix is normal. There ar e no dilated loops of bowel. The endometrial complex is thickened to 1.9 cm. There are no pathologica lly enlarged lymph nodes. There is no free intraperitoneal fluid. There is severe thoracic and lumbar spondylosis. IMPRESSION: 1. Acute sigmoid diverticulitis. No perforation or abscess. 2. Thickened endometrial complex. The differential diagnosis includes endometrial hyperplasia, polyp, and carcinoma. Biopsy is recommended. Reviewed, dictated and finalized at location A. IMPRESSION: 1. Acute sigmoid diverticulitis. No perforation or abscess. 2. Thickened endometrial complex. The differential diagnosis includes endometri al hyperplasia, polyp, and carcinoma. Biopsy is recommended.
[2023-06-18 21:59] VITALS: BP 132/78; PULSE 115; RESP 22; TEMP 37.4; O2SAT 98
--- NOTE | 2023-06-18 22:12 | ECG_ITS ---
SEE SCANNED COPY FOR CONFIRMED REPORT MTDD
--- NOTE | 2023-06-18 23:01 | ED.GENADULT ---
HPI - General Adult General Chief complaint: Abdominal Pain Stated complaint: abd pain Time Seen by Provider: 06/18/23 22:18 History of Present Illness HPI narrative: Patient 78-year-old female who presents emergency department with chief complaint of abdominal pain. The patient reports that she started having discomfort this morning in her left lower quadrant extending to periumbilical area the patient also reports that radiates to the back patient reports that she has had some nausea but no vomiting denies diarrhea reports she has had no urinary symptoms. The patient denies fever patient reports prior history of cholecystectomy Related Data Allergies Allergy/AdvReac Type Severity Reaction Status Date / Time codeine Allergy Unknown unknown Verified 06/18/23 22:13 Review of Systems Review of Systems: A 10 system review of systems was completed on the patient and is negative except for what is stated in the HPI. Nursing and ancillary documentation was reviewed. PMFSH Past Medical History Medical History Hypertension Migraine Surgical History Surgical History History of cholecystectomy History of endometrial ablation History of salpingo-oophorectomy Family History Family History Father Diabetes mellitus, Onset Age: 72 Mother Hypertension, Onset Age: 98 Social History Social History Social History: Patient does not drink caffeine or exercise. Smoking status: Never smoker Second hand tobacco smoke exposure: No Alcohol intake: current Alcohol use details: rarely Substance use: never Substance use type: does not use Lack of Transportation: No Lack of Food: Never True Current Housing: I Have Housing Concerned About Future Housing: No Difficulty Paying Gas/Electric Bills: No Difficulty Paying for Meds: No Currently Unemployed: No Education: Bachelor's Degree Difficulty w/ Childcare or Family Care: No Living arrangements: with family Additional living arrangements comments: Occupation/Education: retired Gender identity (if verbalized by the patient): Female Sexual Orientation (if Verbalized by the Patient): Straight or Heterosexual Exam Narrative: GENERAL: Well-appearing, well-nourished, and in no acute distress. HEAD: Normocephalic, atraumatic. EYES: PERRLA and EOMI. ENT: Nares clear, no rhinorrhea or epistaxis. Mucous membranes moist. NECK: Supple. CHEST: Clear to auscultation. No respiratory distress. HEART: Regular rate and rhythm. No murmur heard. Normal peripheral pulses. ABDOMEN: Soft, tenderness to palpation left lower quadrant, nondistended, normal active bowel sounds. EXTREMITIES: Normal range of motion. No edema. SKIN: Warm, dry, no rash. NEURO: No focal deficits. Alert and oriented x3. PSYCH: Normal mood and affect. Course Vital Signs Vital signs: Vital Signs Temperature 37.4 C 06/18/23 21:59 Pulse Rate 115 H 06/18/23 21:59 Respiratory Rate 22 H 06/18/23 21:59 Blood Pressure 132/78 06/18/23 21:59 Pulse Oximetry 98 06/18/23 21:59 Oxygen Delivery Room Air 06/18/23 21:59 Temperature 37.4 C 06/18/23 21:59 Pulse Rate 102 H 06/19/23 02:47 Respiratory Rate 16 06/19/23 02:47 Blood Pressure 97/46 L 06/19/23 02:47 Pulse Oximetry 95 06/19/23 02:47 Oxygen Delivery Room Air 06/18/23 21:59 Medical Decision Making Vital Signs Vital Signs: Vital Signs Temperature 37.4 C 06/18/23 21:59 Pulse Rate 115 H 06/18/23 21:59 Respiratory Rate 22 H 06/18/23 21:59 Blood Pressure 132/78 06/18/23 21:59 Pulse Oximetry 98 06/18/23 21:59 Oxygen Delivery Room Air 06/18/23 21:59 Temperature 37.4 C 06/18/23 21:59 Pul
[2023-06-18 23:25] LABS: Appearance Urine Clear (Clear); Bilirubin Urine Negative (Negative); Blood Urine Negative (Negative); Color Urine Yellow (Yellow); Glucose Urine UA Negative (Negative); Ketones Urine Negative (Negative); Leukocyte Esterase Ur Negative LEU/UL (Negative); Nitrate Urine Negative (Negative); Protein Urine Negative (Negative); Specific Grav Ur 1.019 (1.001-1.035); Urobilinogen Urine 0.2 mg/dL (<2.0)
[2023-06-18 23:26] LABS: Basophils Absolute Auto 0.1 K/mm3 (0.0-0.1); Basophils Percent Auto 0.4 % (0.2-1.2); Eosinophils Percent Auto 0.2 % (0-4.4); Hematocrit 48.4 % (37.0-47.0); Hemoglobin 15.4 g/dL (12.0-15.0); Immature Granulocyte Absolute 0.06 K/mm3 (0.00-0.031); Immature Granulocyte Percent A 0.5 % (0-0.5); Immature Platelet Fraction Pct 5.3 % (0.9-11.2); Mean Corpuscular HGB Conc 31.8 g/dl (32-36); Mean Corpuscular Hemoglobin 29.6 pg (26-34); Mean Corpuscular Volume 92.9 fl (80-100); Monocytes Absolute Auto 0.7 K/mm3 (0.1-0.6); Monocytes Percent Auto 5.3 % (2.6-8.5); Neutrophils Absolute Auto 11.7 K/mm3 (1.3-6.7); Neutrophils Percent Auto 87.6 % (45.5-73.1); Platelet Count Result 184 k/mm3 (150-375); Red Blood Count 5.21 M/mm3 (4.2-5.4); Red Cell Distribution Width 13.3 % (11.5-14.5); White Blood Count 13.3 K/mm3 (4.5-10.0)
[2023-06-18 23:34] LABS: Alanine Aminotransferase 25 U/L (6-35); Albumin Level 4.3 g/dL (3.5-5.1); Alkaline Phosphatase 90 U/L (38-126); Anion Gap 6 mmol/L (4-12); Aspartate Amino Transferase 31 U/L (14-36); Bilirubin,Total 0.9 mg/dL (0.2-1.3); Blood Urea Nitrogen 11 mg/dL (7-17); Calcium 9.3 mg/dL (8.4-10.2); Carbon Dioxide 27 mmol/L (22-30); Chloride 105 mmol/L (98-107); Estimated CRCL calculation 71 ml/min; Estimated Glomerular Filt Rate > 60; Glucose 114 mg/dL (65-110); Lipase 98 U/L (23-300); Potassium 3.9 mmol/L (3.4-5.0); Sodium 138 mmol/L (137-145)
[2023-06-18 23:35] LABS: Lactic Acid Reflex 1.3 mmol/L (0.7-2.0)
[2023-06-18 23:43] LABS: Add Urine Microscopic? NO
[2023-06-18 23:48] VITALS: BP 125/73; PULSE 117; RESP 12; O2SAT 100
[2023-06-18] MEDS: MORPHINE SULFATE (*CRX) 4 MG/ML INJ IV PUSH (23:48)
[2023-06-18] MEDS: SODIUM CHLORIDE 0.9% IV 1,000 ML 999 ML IV CONT (23:48)
[2023-06-18] MEDS: ONDANSETRON INJ 4 MG/2 ML VIAL IV PUSH (23:48)
[2023-06-19] VITALS (9 sets, daily range): BP systolic 97–120; BP diastolic 46–93; PULSE 70–107; RESP 14–19; TEMP 36.7–37.6; O2SAT 95–98; BMI 26.4
[2023-06-19] MEDS: PIPERACILLN/TAZ 3.375GM/NS50ML 3.375 GM/50 ML BAG IVPB ×4 (02:10→20:24)
[2023-06-19] MEDS: SODIUM CHLORIDE 0.9% IV 1,000 ML 999 ML IV CONT (02:31)
[2023-06-19 03:19] LABS: Procalcitonin 0.2 ng/mL
--- NOTE | 2023-06-19 04:56 | ADMGEN ---
This patient, Dorota Holguin, was admitted to [facility] Surg Room 306-02. Patient/family oriented to hospital policies and general routines including ID bracelet, bed and alarms, visiting hours, pain management, procedures, bathroom and other care routines, personal items, smoking policy, room service/diet, and visiting hours. Information on how to activate the Rapid Response Team has been discussed. Patient/Family are encouraged to report perceived risks to care and to ask questions if they do not understand what they are told or what they should do.
[2023-06-19] MEDS: SODIUM CHLORIDE 0.9% IV 1,000 ML 125 ML IV CONT ×2 (05:32→14:55)
--- NOTE | 2023-06-19 07:24 | PM.IMHP ---
H&P: HPI History of Present Illness Date/Time: 06/19/23 07:24 Chief Complaint: Abdominal pain Narrative: 78-year-old female with a past medical history of essential hypertension, GERD, cholecystectomy, diverticulosis with history of diverticulitis who presented to the ER via private vehicle due to abdominal pain. The patient reports symptoms started after eating cereal that morning. Shortly after eating she began having cramping lower abdominal pain. Pain was intermittent in nature but escalating throughout the day. For the most part the pain was4-5/10 in intensity. But occasionally she would have more sharp stabbing pains. Pain was in the lower quadrants bilaterally. She was having some associated nausea but no vomiting. She did have some significant chills but no measured fevers. She reports her last bowel movement was yesterday morning prior to onset of abdominal pain. Stool was brown and normally formed. CT scan performed in the ER demonstrated acute diverticulitis without perforation or abscess. Initial stat read interpretation also mentioned distended fluid-filled uterine cavity with possible underlying uterine lesion or phlegmon of fistulous communication with acute diverticulitis. Patient denies any spotting or vaginal discharge. 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 She thinks that it may have been due to endometriosis about 10 years ago. She denies any urinary symptoms. Review of Systems Review of Systems: 12 systems were reviewed with pertinent positives and negatives per HPI. Except as documented in the HPI, all other systems were reviewed and are negative. [facility] Past Medical History Medical History (Updated 06/19/23 @ 07:55 by Tanisha Ospina DO) Eosinophilic esophagitis Hiatal hernia Hypertension Migraine Schatzki's ring of distal esophagus (~2017) Vitamin D deficiency Surgical History Surgical History (Updated 06/19/23 @ 07:53 by Tanisha Ospina DO) History of cholecystectomy History of endometrial ablation (~1984) Balloon ablation History of salpingo-oophorectomy (~2016) Dr. Foster S/P balloon dilatation of esophageal stricture (~2017) Family History Family History Father Diabetes mellitus, Onset Age: 72 Mother Hypertension, Onset Age: 98 Social History Social History (Updated 06/19/23 @ 07:43 by Tanisha Ospina DO) Social History: Patient has been since April of 2021. She had been for almost 50 years prior to her 's . They raised 2 sons. 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 She is a lifelong nonsmoker and does not drink alcohol use illicit substances. Code status: Full code Smoking status: Never smoker Second hand tobacco smoke exposure: No Alcohol intake: current Drinks per week: 0 Alcohol use details: rarely Substance use: never Substance use type: does not use Do You Feel Safe in your Home?: Yes Lack of Transportation: No Lack of Food: Never True Current Housing: I Have Housing Concerned About Future Housing: No Difficulty Paying Gas/Electric Bills: No Difficulty Paying for Meds: No Currently Unemployed: No Education: Bachelor's Degree Difficulty w/ Childcare or Family Care: No Living arrangements: with family Additional living arrangements comments: Occupation/Education: retired Gender identity (if verbalized by the patient): Female Sexual Orientation (if Verbalized by the Patient): Straight or Heterosexual Spiritual care concerns: No Meds Home Medications and Allergies Home Medications Medication Instructions Recorded Confirmed Type omeprazole 20 mg capsule,delayed 20 mg PO DAILY #90 caps 10/22/22 06/19/23 Rx release nadolol 40 mg tablet See Rx Instructions .Route 02/18/23 06/19/23 Rx .COMPLEX #90 tabs flutic
--- NOTE | 2023-06-19 08:46 | PM.IMPN ---
Progress Note: A&P Assessment and Plan (1) Diverticulitis: Code(s): K57.92 - Diverticulitis of intestine, part unspecified, without perforation or abscess without bleeding Status: Acute (2) Abnormal collection of fluid in uterine cavity: Code(s): N85.8 - Other specified noninflammatory disorders of uterus Status: Acute (3) Hypertension: Qualifiers: Hypertension type: primary hypertension Qualified Code(s): I10 - Essential (primary) hypertension Code(s): I10 - Essential (primary) hypertension Status: Acute Plan # acute uncomplicated diverticulitis - on empiric antibiotic therapy with Zosyn - leukocytosis- will repeat CBC / in am - initially tachy but resolved now-monitor with routine VS -continue maintenance IV fluids encourage oral intake -Heart healthy diet as tolerated - P.r.n. pain medications and nausea medications have been provided. # endometrial hypertrophy possible communication between the diverticulum and uterus on CT read - Official interpretation suggest endometrial hyperplasia polyp or cancer - Ob Gyne has been consulted for further recommendations- was seen per DR Mahendra Quinones this am appreciate recommendations: .. follow up with us in 2-3 weeks at which point will schedule a D&C, and discuss the unlikely potential of endometrial hyperplasia/carcinoma but that this was a possibility and need to be evaluated even though she has had no symptoms. # hypertension continue home nadolol # GERD # h/o esophageal stricture continue home GI prophylaxis FEN: GI prophylaxis: omeprazole DVT: lovenox 40 mg SQ Lines: peripheral iV Despo: home Time Spent With Patient Time with patient: 25 - 35 minutes Subjective Date/time seen: 06/19/23 08:46 Interval history: 78-year-old female with a PMH of HTN, GERD, cholecystectomy, diverticulosis with history of diverticulitis who presented to the ER via private vehicle due to abdominal pain.? The patient reports symptoms started after eating cereal that morning.? Shortly after, she started having cramping to lower abdomin.? Pain was intermittent in nature but escalating throughout the day.? For the most part the pain was at 4-5/10 in intensity.? But occasionally she would have more sharp stabbing pains.? Pain was in the lower quadrants bilaterally.? She was having some associated nausea but no vomiting.? She did have some significant chills but no measured fevers.? She reports her last bowel movement was yesterday morning prior to onset of abdominal pain.? Stool was brown and normally formed.? CT scan performed in the ER demonstrated acute diverticulitis without perforation or abscess.? Initial stat read interpretation also mentioned distended fluid-filled uterine cavity with possible underlying uterine lesion or phlegmon of fistulous communication with acute diverticulitis.? Patient denies any spotting or vaginal discharge.? 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 She thinks that it may have been due to endometriosis about 10 years ago.? She denies any urinary symptoms. 06/18- she admitted today for observation for uncomplicated diverticulitis- was started on empiric antibiotics- Zosyn. Initial CBC-leukocytosis, tachycardia but resolved now. OB consult completed today (Dr Heather Quinones) recommendation: f/u in 2-3 weeks for outpt D&C Review of Systems Review of Systems: 12 systems were reviewed with pertinent positives and negatives per HPI. Except as documented in the HPI, all other systems were reviewed and are negative. Exam Narrative: Weight 81.1 kg BMI 26.4 Const: Other: No acute distress, overweight, appears stated age HENMT: Other: Mucous membranes are tacky, no oral pharyngeal erythema, fair dentition, crowded posterior oropharynx Eyes: Other: Pupils are equal and reactive, no scleral icterus, no conjunctival pallor Neck: Other
[2023-06-19] MEDS: ACETAMINOPHEN 325 MG TABLET 650 MG PO ×3 (09:29→21:06)
[2023-06-19] MEDS: PANTOPRAZOLE 40 MG TABLET PO (09:30)
[2023-06-19] MEDS: nadoloL 20 MG TABLET PO (09:30)
[2023-06-19] MEDS: FLUTICASONE PROPIONATE 0.05% NA SPR 16 GM BTL (*BKC) 1 SPRAY NASAL (09:30)
--- NOTE | 2023-06-19 11:06 | WPDCN ---
HPI Data of Consult Date/Time: 06/19/23 11:06 Requesting Physician: Tanisha Ospina DO Primary Care Provider: Oneil Wood MD Consult Narrative Narrative: Dorota Holguin is a 78 year old female admitted with diverticulitis. Incidentally found to have endometrial hypertrophy. Initial read mentions some type of communication, though official read did not and that would seem extremely unlikely. She denies any type of vaginal bleeding or discharge of note, and no pain or discomfort other than that related to her diverticulitis. I have discussed with Ms. Griffin that after she is discharged she should follow up with us in 2-3 weeks at which point will schedule a D&C, and discuss the unlikely potential of endometrial hyperplasia/carcinoma but that this was a possibility and need to be evaluated even though she has had no symptoms. She does state good understanding, questions are answered, and we will proceed after she is discharged. [facility] Past Medical History Medical History (Updated 06/19/23 @ 07:55 by Tanisha Ospina DO) Eosinophilic esophagitis Hiatal hernia Hypertension Migraine Schatzki's ring of distal esophagus (~2017) Vitamin D deficiency Surgical History Surgical History (Updated 06/19/23 @ 07:53 by Tanisha Ospina DO) History of cholecystectomy History of endometrial ablation (~1984) Balloon ablation History of salpingo-oophorectomy (~2016) Dr. Foster S/P balloon dilatation of esophageal stricture (~2017) Family History Family History Father Diabetes mellitus, Onset Age: 72 Mother Hypertension, Onset Age: 98 Social History Social History (Updated 06/19/23 @ 07:43 by Tanisha Ospina DO) Social History: Patient has been since April of 2021. She had been for almost 50 years prior to her 's . They raised 2 sons. 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 She is a lifelong nonsmoker and does not drink alcohol use illicit substances. Code status: Full code Smoking status: Never smoker Second hand tobacco smoke exposure: No Alcohol intake: current Drinks per week: 0 Alcohol use details: rarely Substance use: never Substance use type: does not use Do You Feel Safe in your Home?: Yes Lack of Transportation: No Lack of Food: Never True Current Housing: I Have Housing Concerned About Future Housing: No Difficulty Paying Gas/Electric Bills: No Difficulty Paying for Meds: No Currently Unemployed: No Education: Bachelor's Degree Difficulty w/ Childcare or Family Care: No Living arrangements: with family Additional living arrangements comments: Occupation/Education: retired Gender identity (if verbalized by the patient): Female Sexual Orientation (if Verbalized by the Patient): Straight or Heterosexual Spiritual care concerns: No Meds Home Medications and Allergies Home Medications Medication Instructions Recorded Confirmed Type omeprazole 20 mg capsule,delayed 20 mg PO DAILY #90 caps 10/22/22 06/19/23 Rx release nadolol 40 mg tablet See Rx Instructions .Route 02/18/23 06/19/23 Rx .COMPLEX #90 tabs fluticasone propionate 50 See Rx Instructions .Route 06/03/23 06/19/23 Rx mcg/actuation nasal .COMPLEX #48 grams spray,suspension flaxseed oil 1,200 mg BYMOUTH DAILY 06/19/23 06/19/23 History Allergies Allergy/AdvReac Type Severity Reaction Status Date / Time codeine Allergy Unknown unknown Verified 06/18/23 22:13 Vital Signs Vital Signs - 24 hr 06/18/23 21:59 06/18/23 23:48 06/19/23 02:47 Temperature 99.4 F Pulse Rate 115 H 117 H 102 H Respiratory Rate 22 H 12 16 Blood Pressure 132/78 125/73 97/46 L Pulse Oximetry 98 100 95 Oxygen Delivery Room Air 06/19/23 04:07 06/19/23 04:39 06/19/23 06:00 Temperature 99.6 F Pulse Rate 101 H 98 87 Respiratory Rate 19 19 16 Blood Pressu
[2023-06-20] MEDS: PIPERACILLN/TAZ 3.375GM/NS50ML 3.375 GM/50 ML BAG IVPB (03:00)
[2023-06-20] MEDS: SODIUM CHLORIDE 0.9% IV 1,000 ML 125 ML IV CONT (03:01)
[2023-06-20 05:26] VITALS: BP 92/50; PULSE 71; RESP 17; TEMP 36.6; O2SAT 97
[2023-06-20 06:15] LABS: Basophils Percent Auto 0.4 % (0.2-1.2); Eosinophils Percent Auto 0.3 % (0-4.4); Hematocrit 40.5 % (37.0-47.0); Hemoglobin 12.6 g/dL (12.0-15.0); Immature Granulocyte Absolute 0.08 K/mm3 (0.00-0.031); Immature Granulocyte Percent A 0.8 % (0-0.5); Lymphocytes Absolute Auto 0.87 K/mm3 (0.9-3.2); Lymphocytes Percent Auto 8.4 % (18.3-44.2); Mean Corpuscular HGB Conc 31.1 g/dl (32-36); Mean Corpuscular Hemoglobin 29.6 pg (26-34); Mean Corpuscular Volume 95.1 fl (80-100); Mean Platelet Volume 11.1 fl (7.4-10.4); Monocytes Absolute Auto 0.6 K/mm3 (0.1-0.6); Monocytes Percent Auto 5.7 % (2.6-8.5); Neutrophils Absolute Auto 8.7 K/mm3 (1.3-6.7); Neutrophils Percent Auto 84.4 % (45.5-73.1); Platelet Count Result 144 k/mm3 (150-375); Red Blood Count 4.26 M/mm3 (4.2-5.4); Red Cell Distribution Width 13.2 % (11.5-14.5); White Blood Count 10.3 K/mm3 (4.5-10.0)
[2023-06-20 06:23] LABS: Alanine Aminotransferase 43 U/L (6-35); Albumin Level 3.2 g/dL (3.5-5.1); Alkaline Phosphatase 81 U/L (38-126); Anion Gap 8 mmol/L (4-12); Aspartate Amino Transferase 40 U/L (14-36); Bilirubin,Total 1.5 mg/dL (0.2-1.3); Blood Urea Nitrogen 10 mg/dL (7-17); Calcium 8.6 mg/dL (8.4-10.2); Carbon Dioxide 20 mmol/L (22-30); Chloride 112 mmol/L (98-107); Estimated CRCL calculation 71 ml/min; Estimated Glomerular Filt Rate > 60; Glucose 64 mg/dL (65-110); Potassium 3.8 mmol/L (3.4-5.0); Sodium 140 mmol/L (137-145)
--- NOTE | 2023-06-20 08:25 | PM.IMPN ---
Progress Note: A&P Assessment and Plan (1) Diverticulitis: Code(s): K57.92 - Diverticulitis of intestine, part unspecified, without perforation or abscess without bleeding Status: Acute (2) Abnormal collection of fluid in uterine cavity: Code(s): N85.8 - Other specified noninflammatory disorders of uterus Status: Acute (3) Hypertension: Qualifiers: Hypertension type: primary hypertension Qualified Code(s): I10 - Essential (primary) hypertension Code(s): I10 - Essential (primary) hypertension Status: Acute Plan acute uncomplicated diverticulitis - on empiric antibiotic therapy with Zosyn - leukocytosis- will repeat CBC 06/20 in am - initially tachy but resolved now-monitor with routine VS -continue maintenance IV fluids encourage oral intake 06/19: -low-fiber diet as tolerated - P.r.n. pain medications and nausea medications have been provided. -Zosyn switched to Flagyl/Rocephin due to bump in liver enzymes will repeat in the a.m. # endometrial hypertrophy possible communication between the diverticulum and uterus on CT read - Official interpretation suggest endometrial hyperplasia polyp or cancer - Station Mechanic Helper has been consulted for further recommendations- was seen per DR Mahendra Quinones this am appreciate recommendations: .. follow up with us in 2-3 weeks at which point will schedule a D&C, and discuss the unlikely potential of endometrial hyperplasia/carcinoma but that this was a possibility and need to be evaluated even though she has had no symptoms. # hypertension continue home nadolol # GERD # h/o esophageal stricture continue home GI prophylaxis Code status: Full code per patient DVT prophylaxis: Lovenox Stress ulcer prophylaxis: Protonix 40 daily PT/OT notes: Ambulatory Disposition: Patient admitted with acute diverticulitis uncomplicated patient did have slight bump in liver enzymes switch Zosyn to Flagyl and Rocephin follow-up labs in the a.m. will advance patient's diet as tolerated can likely discharge home tomorrow if tolerating oral intake and liver enzymes improve. Time Spent With Patient Time with patient: 15 - 25 minutes Subjective Date/time seen: 06/20/23 08:25 Interval history: Admission: Medical Record 78-year-old female with a PMH of HTN, GERD, cholecystectomy, diverticulosis with history of diverticulitis who presented to the ER via private vehicle due to abdominal pain.? The patient reports symptoms started after eating cereal that morning.? Shortly after, she started having cramping to lower abdomin.? Pain was intermittent in nature but escalating throughout the day.? For the most part the pain was at 4-5/10 in intensity.? But occasionally she would have more sharp stabbing pains.? Pain was in the lower quadrants bilaterally.? She was having some associated nausea but no vomiting.? She did have some significant chills but no measured fevers.? She reports her last bowel movement was yesterday morning prior to onset of abdominal pain.? Stool was brown and normally formed.? CT scan performed in the ER demonstrated acute diverticulitis without perforation or abscess.? Initial stat read interpretation also mentioned distended fluid-filled uterine cavity with possible underlying uterine lesion or phlegmon of fistulous communication with acute diverticulitis.? Patient denies any spotting or vaginal discharge.? 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 She thinks that it may have been due to endometriosis about 10 years ago.? She denies any urinary symptoms. 5/6: Assumed Care Patient ABD pain improving will advance diet as tolerated. Patient had a bump in her ALT/AST and T-bill could be medication induced from zosyn will switch to Flagyl and Rocephin liver enzymes in the morning, patient's leukocytosis is improving and has remained afebrile. Review of Systems Review of Systems:
[2023-06-20 09:04] VITALS: PULSE 76
[2023-06-20] MEDS: PANTOPRAZOLE 40 MG TABLET PO (09:04)
[2023-06-20] MEDS: nadoloL 20 MG TABLET PO (09:04)
[2023-06-20] MEDS: FLUTICASONE PROPIONATE 0.05% NA SPR 16 GM BTL (*BKC) 1 SPRAY NASAL ×2 (09:04→17:12)
[2023-06-20] MEDS: metroNIDAZOLE 500 MG/ISO 100ML 500 MG/100 ML BAG 100 MG IVPB (09:04)
[2023-06-20] MEDS: ACETAMINOPHEN 325 MG TABLET 650 MG PO (11:35)
[2023-06-20 14:00] VITALS: BP 107/54; PULSE 73; RESP 18; TEMP 36.2; O2SAT 97
[2023-06-20] MEDS: metroNIDAZOLE 500 MG TABLET PO (17:12)
[2023-06-20 20:07] VITALS: BP 118/55; PULSE 71; RESP 18; TEMP 36.4; O2SAT 99
[2023-06-21] MEDS: metroNIDAZOLE 500 MG TABLET PO ×5 (00:20→23:20)
[2023-06-21 05:39] VITALS: BP 115/52; PULSE 87; RESP 16; TEMP 36.5; O2SAT 98
[2023-06-21] MEDS: levoFLOXacin 750 MG TABLET PO (08:35)
[2023-06-21] MEDS: PANTOPRAZOLE 40 MG TABLET PO (08:35)
[2023-06-21 08:36] VITALS: PULSE 87
[2023-06-21] MEDS: nadoloL 20 MG TABLET PO (08:36)
[2023-06-21] MEDS: FLUTICASONE PROPIONATE 0.05% NA SPR 16 GM BTL (*BKC) 1 SPRAY NASAL ×2 (08:37→17:33)
--- NOTE | 2023-06-21 12:59 | PM.IMPN ---
Progress Note: A&P Assessment and Plan (1) Diverticulitis: Code(s): K57.92 - Diverticulitis of intestine, part unspecified, without perforation or abscess without bleeding Status: Acute (2) Abnormal collection of fluid in uterine cavity: Code(s): N85.8 - Other specified noninflammatory disorders of uterus Status: Acute (3) Hypertension: Qualifiers: Hypertension type: primary hypertension Qualified Code(s): I10 - Essential (primary) hypertension Code(s): I10 - Essential (primary) hypertension Status: Acute Plan acute uncomplicated diverticulitis - on empiric antibiotic therapy with Zosyn - leukocytosis- will repeat CBC 06/20 in am - initially tachy but resolved now-monitor with routine VS -continue maintenance IV fluids encourage oral intake 06/19: -low-fiber diet as tolerated - P.r.n. pain medications and nausea medications have been provided. -Zosyn switched to Flagyl/Rocephin due to bump in liver enzymes will repeat in the a.m. 06/20: Diarrhea reported c-diff pending continue to advance diet as tolerated # endometrial hypertrophy possible communication between the diverticulum and uterus on CT read - Official interpretation suggest endometrial hyperplasia polyp or cancer - Propellant Charge Loader has been consulted for further recommendations- was seen per DR Mahendra Quinones this am appreciate recommendations: .. follow up with us in 2-3 weeks at which point will schedule a D&C, and discuss the unlikely potential of endometrial hyperplasia/carcinoma but that this was a possibility and need to be evaluated even though she has had no symptoms. # hypertension continue home nadolol # GERD # h/o esophageal stricture continue home GI prophylaxis Code status: Full code per patient DVT prophylaxis: Lovenox Stress ulcer prophylaxis: Protonix 40 daily PT/OT notes: Ambulatory Disposition: Patient admitted with acute diverticulitis uncomplicated patient did have slight bump in liver enzymes switch Zosyn to Flagyl and PO Levaquin follow-up labs in the a.m. will advance patient's diet as tolerated. Patient's liver enzymes bumped repeat pending. Patient states she is having multiple episodes of diarrhea C diff ordered and pending reported pain was worse today. Patient is ambulatory on and once stable will discharge home. Time Spent With Patient Time with patient: 15 - 25 minutes Subjective Date/time seen: 06/21/23 12:59 Interval history: Admission: Medical Record 78-year-old female with a PMH of HTN, GERD, cholecystectomy, diverticulosis with history of diverticulitis who presented to the ER via private vehicle due to abdominal pain.? The patient reports symptoms started after eating cereal that morning.? Shortly after, she started having cramping to lower abdomin.? Pain was intermittent in nature but escalating throughout the day.? For the most part the pain was at 4-5/10 in intensity.? But occasionally she would have more sharp stabbing pains.? Pain was in the lower quadrants bilaterally.? She was having some associated nausea but no vomiting.? She did have some significant chills but no measured fevers.? She reports her last bowel movement was yesterday morning prior to onset of abdominal pain.? Stool was brown and normally formed.? CT scan performed in the ER demonstrated acute diverticulitis without perforation or abscess.? Initial stat read interpretation also mentioned distended fluid-filled uterine cavity with possible underlying uterine lesion or phlegmon of fistulous communication with acute diverticulitis.? Patient denies any spotting or vaginal discharge.? 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 She thinks that it may have been due to endometriosis about 10 years ago.? She denies any urinary symptoms. 5/6: Assumed Care Patient ABD pain improving will advance diet as tolerated. Patient had a bump in her ALT/
[2023-06-21 13:16] LABS: Hematocrit 40.3 % (37.0-47.0); Hemoglobin 13.2 g/dL (12.0-15.0); Mean Corpuscular HGB Conc 32.8 g/dl (32-36); Mean Corpuscular Hemoglobin 29.9 pg (26-34); Mean Corpuscular Volume 91.2 fl (80-100); Platelet Count Result 192 k/mm3 (150-375); Red Blood Count 4.42 M/mm3 (4.2-5.4); Red Cell Distribution Width 13.3 % (11.5-14.5); White Blood Count 9.3 K/mm3 (4.5-10.0)
[2023-06-21 13:31] LABS: Alanine Aminotransferase 31 U/L (6-35); Albumin Level 3.7 g/dL (3.5-5.1); Alkaline Phosphatase 79 U/L (38-126); Anion Gap 7 mmol/L (4-12); Aspartate Amino Transferase 28 U/L (14-36); Bilirubin,Total 0.6 mg/dL (0.2-1.3); Blood Urea Nitrogen 9 mg/dL (7-17); Calcium 9.1 mg/dL (8.4-10.2); Carbon Dioxide 23 mmol/L (22-30); Chloride 110 mmol/L (98-107); Estimated CRCL calculation 83 ml/min; Estimated Glomerular Filt Rate > 60; Glucose 136 mg/dL (65-110); Potassium 3.8 mmol/L (3.4-5.0); Sodium 140 mmol/L (137-145)
[2023-06-21 14:00] VITALS: BP 117/62; PULSE 81; RESP 18; TEMP 35.9; O2SAT 97
[2023-06-21 19:52] LABS: Toxigenic C. Diff POSITIVE (NEGATIVE)
[2023-06-21 21:13] VITALS: BP 120/63; PULSE 69; RESP 13; TEMP 36.2; O2SAT 99
[2023-06-21 21:15] VITALS: O2SAT 97
[2023-06-21] MEDS: VANCOMYCIN HCL 125 MG ORAL CAPSULE PO (23:20)
[2023-06-22 05:11] VITALS: BP 113/51; PULSE 67; RESP 13; TEMP 36.1; O2SAT 97
[2023-06-22] MEDS: metroNIDAZOLE 500 MG TABLET PO ×4 (05:52→23:27)
[2023-06-22] MEDS: VANCOMYCIN HCL 125 MG ORAL CAPSULE PO (05:53)
[2023-06-22 06:46] LABS: Hemoglobin 12.8 g/dL (12.0-15.0); Mean Corpuscular Hemoglobin 29.6 pg (26-34); Mean Corpuscular Volume 92.6 fl (80-100); Mean Platelet Volume 11.4 fl (7.4-10.4); Platelet Count Result 187 k/mm3 (150-375); Red Blood Count 4.32 M/mm3 (4.2-5.4); Red Cell Distribution Width 13.3 % (11.5-14.5); White Blood Count 5.8 K/mm3 (4.5-10.0)
[2023-06-22 06:54] LABS: Alanine Aminotransferase 25 U/L (6-35); Albumin Level 3.3 g/dL (3.5-5.1); Alkaline Phosphatase 75 U/L (38-126); Anion Gap 3 mmol/L (4-12); Aspartate Amino Transferase 27 U/L (14-36); Bilirubin,Total 0.4 mg/dL (0.2-1.3); Blood Urea Nitrogen 8 mg/dL (7-17); Calcium 8.8 mg/dL (8.4-10.2); Carbon Dioxide 28 mmol/L (22-30); Chloride 108 mmol/L (98-107); Estimated CRCL calculation 71 ml/min; Estimated Glomerular Filt Rate > 60; Glucose 103 mg/dL (65-110); Potassium 3.9 mmol/L (3.4-5.0); Sodium 139 mmol/L (137-145)
[2023-06-22] MEDS: nadoloL 20 MG TABLET PO (09:11)
[2023-06-22] MEDS: levoFLOXacin 750 MG TABLET PO (09:11)
[2023-06-22] MEDS: PANTOPRAZOLE 40 MG TABLET PO (09:11)
[2023-06-22] MEDS: FIDAXOMICIN 200 MG TABLET PO ×2 (09:12→20:44)
[2023-06-22] MEDS: FLUTICASONE PROPIONATE 0.05% NA SPR 16 GM BTL (*BKC) 1 SPRAY NASAL ×2 (09:12→17:06)
[2023-06-22 14:00] VITALS: BP 120/65; PULSE 73; RESP 18; TEMP 36.7; O2SAT 98
--- NOTE | 2023-06-22 16:21 | PM.IMPN ---
Progress Note: A&P Assessment and Plan (1) Diverticulitis: Code(s): K57.92 - Diverticulitis of intestine, part unspecified, without perforation or abscess without bleeding Status: Acute (2) Abnormal collection of fluid in uterine cavity: Code(s): N85.8 - Other specified noninflammatory disorders of uterus Status: Acute (3) Hypertension: Qualifiers: Hypertension type: primary hypertension Qualified Code(s): I10 - Essential (primary) hypertension Code(s): I10 - Essential (primary) hypertension Status: Chronic Plan acute uncomplicated diverticulitis - Flagyl/Levaquin c-diff positive Started on Dificid continue to advance diet as tolerated # endometrial hypertrophy possible communication between the diverticulum and uterus on CT read - Official interpretation suggest endometrial hyperplasia polyp or cancer - Pinsetter Mechanic Helper has been consulted for further recommendations- was seen per DR Mahendra Quinones this am appreciate recommendations: .. follow up with us in 2-3 weeks at which point will schedule a D&C, and discuss the unlikely potential of endometrial hyperplasia/carcinoma but that this was a possibility and need to be evaluated even though she has had no symptoms. # hypertension continue home nadolol # GERD # h/o esophageal stricture continue home GI prophylaxis Subjective Date/time seen: 06/22/23 16:21 Interval history: Patient positive for c-diff. Started on Dificid and care coordination following. Having some continued ABD pain after eating. Will plan for DC tomorrow if able to tolerate diet and diarrhea improves. Review of Systems Review of Systems: All systems reviewed & are unremarkable except as noted in HPI and below Exam Narrative: GENERAL: Well-appearing female sitting up in bed. No acute distress. EYES: EOMI. PERRLA. HEENT: Moist mucous membranes. LUNGS: Clear to auscultation bilaterally. CARDIOVASCULAR: RRR. No murmur. ABDOMEN: Soft, mild tenderness and non-distended. BS active. EXTREMITIES: No edema. SKIN: No rashes or lesions. Skin warm, dry. NEUROLOGIC: Alert and oriented x 3. No focal neurological deficits. PSYCHIATRIC: Appropriate mood and affect. Good judgement and insight. Objective Data Vital Signs Vital Signs: Vital Signs - 24 hr 06/21/23 21:13 06/21/23 20:00 06/21/23 21:15 Temperature 97.2 F L Pulse Rate 69 Respiratory Rate 13 Blood Pressure 120/63 Pulse Oximetry 99 97 Oxygen Delivery Room Air Room Air 06/22/23 05:11 06/22/23 14:00 Temperature 97.0 F L 98.1 F Pulse Rate 67 73 Respiratory Rate 13 18 Blood Pressure 113/51 L 120/65 Pulse Oximetry 97 98 Oxygen Delivery Intake/Output Intake/Output: Intake & Output 06/19/23 06/20/23 06/21/23 06/22/23 23:59 23:59 23:59 23:59 Intake Total 4200 2230 1840 1350 Output Total 0 300 Balance 4200 2230 1540 1350 Meds/Results Medications: Active Medications Generic Name Dose Route Start Last Admin Trade Name Freq PRN Reason Stop Dose Admin Acetaminophen 650 mg 06/19/23 02:27 06/20/23 11:35 Acetaminophen 325 Mg Tablet PO 650 mg Q4H PRN Administration Mild Pain (1-3) or Fever Fidaxomicin 200 mg 06/22/23 09:00 06/22/23 09:12 Fidaxomicin 200 Mg Tablet PO 07/02/23 08:59 200 mg Q12HR NICOL Administration Fluticasone Propionate 1 spray 06/19/23 09:00 06/22/23 09:12 Fluticasone Propionate 0.05% Na Spr 16 Gm Btl (*Bkc) NASAL 1 spray BID NICOL Administration Levofloxacin 750 mg 06/21/23 09:00 06/22/23 09:11 Levofloxacin 750 Mg Tablet PO 750 mg DAILY NICOL Administration Metronidazole 500 mg 06/20/23 18:00 06/22/23 13:04 Metronidazole 500 Mg Tablet PO 500 mg Q6HR NICOL Administration Morphine Sulfate 2 mg 06/19/23 07:49 Morphine Sulfate (*Crx) 2 Mg/Ml Inj IV PUSH Q4H PRN Pain Rated 7-10 Nadolol 20 mg 06/19/23 09:00 06/22/23 09:11 Nadolol
[2023-06-22] MEDS: ACETAMINOPHEN 325 MG TABLET 650 MG PO (20:46)
[2023-06-22 20:59] VITALS: BP 121/59; PULSE 64; RESP 18; TEMP 37.2; O2SAT 98
[2023-06-23 05:24] VITALS: BP 133/66; PULSE 65; RESP 18; TEMP 36.8; O2SAT 99
[2023-06-23] MEDS: metroNIDAZOLE 500 MG TABLET PO (05:44)
[2023-06-23 05:52] LABS: Hematocrit 41.9 % (37.0-47.0); Hemoglobin 13.5 g/dL (12.0-15.0); Mean Corpuscular HGB Conc 32.2 g/dl (32-36); Mean Corpuscular Hemoglobin 29.7 pg (26-34); Mean Corpuscular Volume 92.3 fl (80-100); Mean Platelet Volume 10.7 fl (7.4-10.4); Platelet Count Result 205 k/mm3 (150-375); Red Blood Count 4.54 M/mm3 (4.2-5.4); Red Cell Distribution Width 13.3 % (11.5-14.5); White Blood Count 5.4 K/mm3 (4.5-10.0)
[2023-06-23 06:10] LABS: Alanine Aminotransferase 28 U/L (6-35); Albumin Level 3.6 g/dL (3.5-5.1); Alkaline Phosphatase 72 U/L (38-126); Anion Gap 4 mmol/L (4-12); Aspartate Amino Transferase 38 U/L (14-36); Bilirubin,Total 0.4 mg/dL (0.2-1.3); Blood Urea Nitrogen 10 mg/dL (7-17); Calcium 9.5 mg/dL (8.4-10.2); Carbon Dioxide 28 mmol/L (22-30); Chloride 109 mmol/L (98-107); Estimated CRCL calculation 71 ml/min; Estimated Glomerular Filt Rate > 60; Glucose 106 mg/dL (65-110); Potassium 4.6 mmol/L (3.4-5.0); Sodium 141 mmol/L (137-145)
[2023-06-23] MEDS: nadoloL 20 MG TABLET PO (10:14)
[2023-06-23] MEDS: PANTOPRAZOLE 40 MG TABLET PO (10:14)
[2023-06-23] MEDS: levoFLOXacin 750 MG TABLET PO (10:14)
[2023-06-23] MEDS: FIDAXOMICIN 200 MG TABLET PO (10:14)
[2023-06-23] MEDS: FLUTICASONE PROPIONATE 0.05% NA SPR 16 GM BTL (*BKC) 1 SPRAY NASAL (10:14)
--- NOTE | 2023-06-23 10:50 | PM.DS ---
DS: Admitting Diagnosis Discharge Date 06/23/23 Admitting Diagnosis abdominal pain DS: Discharge Diagnosis Discharge Diagnosis (1) Diverticulitis: Code(s): K57.92 - Diverticulitis of intestine, part unspecified, without perforation or abscess without bleeding Status: Acute Assessment and Plan: continue Flagyl/Levaquin c-diff positive d/c on PO Vanc as Dificid was poorly covered by insurance discussed low fiber --> high fiber diet (2) Abnormal collection of fluid in uterine cavity: Code(s): N85.8 - Other specified noninflammatory disorders of uterus Status: Acute Assessment and Plan: possible communication between the diverticulum and uterus on CT read Official interpretation suggest endometrial hyperplasia polyp or cancer Waste Water Worker consulted - follow up with us in 2-3 weeks at which point will schedule a D&C, and discuss the unlikely potential of endometrial hyperplasia/carcinoma but that this was a possibility and need to be evaluated even though she has had no symptoms. (3) Hypertension: Qualifiers: Hypertension type: primary hypertension Qualified Code(s): I10 - Essential (primary) hypertension Code(s): I10 - Essential (primary) hypertension Status: Chronic DS: Summary Hospital Course Hospital Course: Patient is a 78-year-old female with PMH of hypertension, GERD, cholecystectomy, diverticulosis with history of diverticulitis admitted for abdominal pain. She was having some associated nausea but no vomiting. She did have some significant chills but no measured fevers. CT scan performed in the ER demonstrated acute diverticulitis without perforation or abscess. Initial interpretation also mentioned distended fluid-filled uterine cavity with possible underlying uterine lesion or phlegmon of fistulous communication with acute diverticulitis. Patient denies any spotting or vaginal discharge. CITY MANAGER was consulted and patient is to follow up in 2-3 weeks. 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 Patient also tested positive for C diff during admission. She was started on Dificid but transitioned to oral vanc for 10 days due to cost of medication for her outpatient. She is to follow up with her primary care provider. Discussed precautions and dietary modifications. She is stable for [place] home today. Status at Discharge Functional status at discharge: independent ambulation Overall status at discharge: patient is progressing back to baseline Time Spent with Patient Time attestation: Total time spent providing and/or coordinating discharge services: Exam Narrative: GENERAL: Well-appearing female sitting up in bed. No acute distress. EYES: EOMI. PERRLA. HEENT: Moist mucous membranes. LUNGS: Clear to auscultation bilaterally. CARDIOVASCULAR: RRR. No murmur. ABDOMEN: Soft, non-tender and non-distended. BS active. EXTREMITIES: No edema. SKIN: No rashes or lesions. Skin warm, dry. NEUROLOGIC: Alert and oriented x 3. No focal neurological deficits. PSYCHIATRIC: Appropriate mood and affect. Good judgement and insight. DS: Data Data Completed and Pending Labs on day of discharge: Labs from last 24 hours 06/23/23 05:45 WBC 5.4 RBC 4.54 Hgb 13.5 Hct 41.9 MCV 92.3 MCH 29.7 MCHC 32.2 RDW 13.3 Plt Count 205 MPV 10.7 H Sodium 141 Potassium 4.6 Chloride 109 H Carbon Dioxide 28 Anion Gap 4 BUN 10 Creatinine 0.60 L Estim Creat Clear Calc 71 Estimated GFR > 60 Glucose 106 Calcium 9.5 Total Bilirubin 0.4 AST 38 H ALT 28 Alkaline Phosphatase 72 Total Protein 6.0 L Albumin 3.6 Preliminary micro results at discharge 06/19/23 02:41 Blood Culture - Preliminary Blood 06/19/23 02:41 Blood Culture - Preliminary Blood Discharge Plan Discharge Attending physician on discharge: Scott Arambula Consulting providers: Joni
--- NOTE | 2023-06-24 11:28 | PC.NURSE ---
Blood cx are negative.
== END 2023-06-23 16:00 | disposition home or self-care (01) | DRG 392 ==
LOC: ANHED 06-19 03:52 → ANH3MEDSUR 06-19 04:26
PROVIDERS: Nurse Practitioner Family; Admitting Provider Internal Medicine; Emergency Provider Emergency Medicine; PCP Emergency Medicine; Visit Provider Nurse Practitioner
DX: K57.32 Diverticulitis of large intestine without perforation or abscess without bleeding (principal); A04.72 Enterocolitis due to Clostridium difficile, not specified as recurrent; N85.8 Other specified noninflammatory disorders of uterus; N85.00 Endometrial hyperplasia, unspecified; K21.9 Gastro-esophageal reflux disease without esophagitis; I10 Essential (primary) hypertension; K44.9 Diaphragmatic hernia without obstruction or gangrene; Z90.49 Acquired absence of other specified parts of digestive tract; Z90.722 Acquired absence of ovaries, bilateral
CPT/HCPCS: 36415; 74177; 80053; 81003; 83605; 83690; 84145; 85025; 85027; 85055; 87040; 87493; 93005; 96361; 96365; 96367; 96375; 99285; A9270; G0378; J0696; J1836; J2270; J2405; J2543; J7030; Q9967

== ENCOUNTER 2023-09-15 01:07 | Day surgery (SDC) | payer MEDICARE, SELFPAY ==
[2023-09-13 11:14] VITALS: BMI 28.7
--- NOTE | 2023-09-13 11:21 | PC.NURSE ---
Report to the Outpatient Waiting Room, entrance under the green pavilion located off [facility], at time _0700_ on date _[id number]_. Planned Procedure Time: _0900_. Time changes happen often and if your time is changed the preop area will call you the afternoon before. - You and your visitor will be asked to self-screen and do not enter if you have any COVID symptoms. - A mask is optional within the hospital at this time. Patients may have clear liquids (water, carbonated beverages, clear teas, apple juice) until 3 hours prior to surgery with a maximum of 20 ounces. - No food from midnight until time of surgery Take the following medications with a SIP of water the morning of surgery: Flonase DO NOT STOP ANY OF YOUR OTHER PRESCRIPTION MEDICATIONS PRIOR TO SURGERY ?EXCEPT THE FOLLOWING Medications to discontinue per physician Vitamins and supplements Date to take last dose___Stop now. Please no make-up, nail spanish, hairspray, perfume, deodorant, or body powder the day of surgery. No jewelry (including any body piercings) or valuables the day of surgery, leave them at home. Please take a shower or bath the night before, or the morning of, surgery with an antibacterial soap. Wear comfortable, loose fitting clothing. - Jewelry must be removed prior to entering the operating room. Rings and piercings that are not removed may be cut off. - The hospital will not accept responsibility for valuables. - Please leave all valuables, including medications, at home the day of surgery. If you are going home after surgery, a licensed regional company flatbed truck driver must drive you home. - NO public transportation without another adult if you receive anesthesia. - We recommend that an adult stay with you for 24 hours following discharge. - We also recommend that you do not drive, make important decision, drink alcoholic beverages, or take any drugs that were not prescribed by your health care provider for at least 24 hours after your discharge time. Follow any additional instructions given to you from your surgeon. If you or anyone in your household have experienced Covid symptoms in the past week, please notify your surgeon or the nurse liaison at the phone number below for possible testing. Telephone instructions given to __Marla__and asked if any additional questions and then verbalized understanding. Patient advised to call surgeon office or pre surgery nurse liaison [phone] if any additional questions.
--- NOTE | 2023-09-14 16:01 | PM.IMHP ---
H&P: [facility] History of Present Illness Date/Time: 09/14/23 16:01 78-year-old female presents for evaluation of abnormality noted on ultrasound. Patient was in the hospital few months ago with diverticulitis, was found on incidental imaging to have thickened endometrial cavity. Upon further review this has been present for a number of years with imaging showing no significant change. Also has had no pain or bleeding. Also has had a history of endometrial ablation in the past. Chief Complaint: Endometrial thickness on ultrasound Review of Systems Review of Systems: All systems reviewed & are unremarkable except as noted in HPI and below PMFSH Past Medical History Medical History Eosinophilic esophagitis Hiatal hernia Hypertension Migraine Schatzki's ring of distal esophagus (~2017) Vitamin D deficiency Surgical History Surgical History (Updated 09/14/23 @ 16:03 by Mahendra Quinones MD) H/O breast biopsy (~1988) History of back surgery (~1993) cyst removed from back Benign History of cholecystectomy History of endometrial ablation (~1984) Balloon ablation History of salpingo-oophorectomy (~2016) Dr. Foster S/P balloon dilatation of esophageal stricture (~2017) Family History Family History Father Diabetes mellitus, Onset Age: 72 Acute myocardial infarction Mother Hypertension, Onset Age: 98 Other Breast cancer 2 maternal aunts Social History Social History Social History: Patient has been since April of 2021. She had been for almost 50 years prior to her 's . They raised 2 sons. 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 She is a lifelong nonsmoker and does not drink alcohol use illicit substances. Code status: Full code Smoking status: Never smoker Second hand tobacco smoke exposure: No Alcohol intake: current Drinks per week: 0 Alcohol use details: rarely Substance use: never Substance use type: does not use Do You Feel Safe in your Home?: Yes Lack of Transportation: No Lack of Food: Never True Current Housing: Decline to Answer Concerned About Future Housing: Decline to Answer Difficulty Paying Gas/Electric Bills: Decline to Answer Difficulty Paying for Meds: Decline to Answer Currently Unemployed: Decline to Answer Education: Decline to Answer Difficulty w/ Childcare or Family Care: Decline to Answer Living arrangements: alone Additional living arrangements comments: Occupation/Education: retired Gender identity (if verbalized by the patient): Female Sexual Orientation (if Verbalized by the Patient): Straight or Heterosexual Spiritual care concerns: No Meds Home Medications and Allergies Home Medications Medication Instructions Recorded Confirmed Type fluticasone propionate 50 See Rx Instructions .Route 06/03/23 09/13/23 Rx mcg/actuation nasal .COMPLEX #48 grams spray,suspension flaxseed oil 1,200 mg BYMOUTH DAILY 06/19/23 09/13/23 History antiarthritic combination no.2 900 900 mg PO BID 07/27/23 09/13/23 History mg tablet (glucosamine-chondroitin) calcium carbonate (Calcium 500) 500 mg PO BID 07/27/23 09/13/23 History loratadine 10 mg tablet (Claritin) 10 mg PO DAILY 07/27/23 09/13/23 History magnesium 200 mg tablet 200 mg PO HS 07/27/23 09/13/23 History nut. tx for PKU, no.49 2 gram-34 1 ea PO DAILY 07/27/23 09/13/23 History kcal/100 mL oral liquid (Glytactin Restore 10 PE) omeprazole 20 mg capsule,delayed 20 mg PO DAILY #90 caps 08/23/23 09/13/23 Rx release nadolol 40 mg tablet See Rx Instructions .Route 09/01/23 09/13/23 Rx .COMPLEX #90 tabs Allergies Allergy/AdvReac Type Severity Reaction Status Date / Time codeine Allergy Severe Chest Pain Verified 09/13/23 11:11
--- NOTE | 2023-09-15 07:14 | WPDHPUPDATE1 ---
History and Physical Update Update Date/Time: 09/15/23 07:14 History and Physical has been reviewed, including an updated exam of the patient. There are NO changes in the patient's condition. Risks, benefits, and alternatives have been discussed and questions answered. Patient agrees to proceed with procedure.
[2023-09-15] MEDS: ACETAMINOPHEN 500 MG TABLET 1000 MG PO (07:34)
[2023-09-15 07:45] VITALS: BP 124/59; PULSE 54; RESP 16; TEMP 36.4; O2SAT 98; BMI 29.0
--- NOTE | 2023-09-15 07:50 | WPDANESEPPF ---
Anes - Initial Pre Proc Eval Procedure: Operation Date: 09/15/23 09:00 Proposed Procedures p Hysteroscopy Dilation and Curettage - Mahendra Quinones MD Date/Time: 09/15/23 07:50 Surgeon: Mahendra Quinones MD Pre Op Diagnosis: endometrial hyperplasia Patient Data Age: 78 Gender: F Height: 1.66 m Weight: 80.2 kg Last Vital Signs Temp 36.4 C L 09/15/23 07:45 Pulse 54 L 09/15/23 07:45 Resp 16 09/15/23 07:45 BP 124/59 L 09/15/23 07:45 Pulse Ox 98 09/15/23 07:45 Allergies Allergy/AdvReac Type Severity Reaction Status Date / Time codeine Allergy Severe Chest Pain Verified 09/15/23 07:35 Home Medications Medication Instructions Recorded Confirmed Type fluticasone propionate 50 See Rx Instructions .Route 06/03/23 09/15/23 Rx mcg/actuation nasal .COMPLEX #48 grams spray,suspension flaxseed oil 1,200 mg BYMOUTH DAILY 06/19/23 09/13/23 History antiarthritic combination no.2 900 900 mg PO BID 07/27/23 09/13/23 History mg tablet (glucosamine-chondroitin) calcium carbonate (Calcium 500) 500 mg PO BID 07/27/23 09/13/23 History loratadine 10 mg tablet (Claritin) 10 mg PO DAILY 07/27/23 09/13/23 History magnesium 200 mg tablet 200 mg PO HS 07/27/23 09/13/23 History nut. tx for PKU, no.49 2 gram-34 1 ea PO DAILY 07/27/23 09/13/23 History kcal/100 mL oral liquid (Glytactin Restore 10 PE) omeprazole 20 mg capsule,delayed 20 mg PO DAILY #90 caps 08/23/23 09/13/23 Rx release nadolol 40 mg tablet See Rx Instructions .Route 09/01/23 09/13/23 Rx .COMPLEX #90 tabs Patient hx anesthesia problems: none Family hx anesthesia problems: none Results Review: All pre-operative results and documents have been reviewed as part of the pre-operative evaluation. [facility] Past Medical History Medical History Eosinophilic esophagitis Hiatal hernia Hypertension Migraine Schatzki's ring of distal esophagus (~2017) Vitamin D deficiency Surgical History Surgical History (Updated 09/14/23 @ 16:03 by Mahendra Quinones MD) H/O breast biopsy (~1988) History of back surgery (~1993) cyst removed from back Benign History of cholecystectomy History of endometrial ablation (~1984) Balloon ablation History of salpingo-oophorectomy (~2016) Dr. Foster S/P balloon dilatation of esophageal stricture (~2017) Family History Family History Father Diabetes mellitus, Onset Age: 72 Acute myocardial infarction Mother Hypertension, Onset Age: 98 Other Breast cancer 2 maternal aunts Social History Social History Social History: Patient has been since April of 2021. She had been for almost 50 years prior to her 's . They raised 2 sons. 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 She is a lifelong nonsmoker and does not drink alcohol use illicit substances. Code status: Full code Smoking status: Never smoker Second hand tobacco smoke exposure: No Alcohol intake: current Drinks per week: 0 Alcohol use details: rarely Substance use: never Substance use type: does not use Do You Feel Safe in your Home?: Yes Lack of Transportation: No Lack of Food: Never True Current Housing: Decline to Answer Concerned About Future Housing: Decline to Answer Difficulty Paying Gas/Electric Bills: Decline to Answer Difficulty Paying for Meds: Decline to Answer Currently Unemployed: Decline to Answer Education: Decline to Answer Difficulty w/ Childcare or Family Care: Decline to Answer Living arrangements: alone Additional living arrangements comments: Occupation/Education: retired Gender identity (if verbalized by the patient): Female Sexual Orientation (if Verbalized by the Patient): Straight or Heterosexual Spiritual care concerns:
[2023-09-15] MEDS: KETOROLAC 15 MG/ML VIAL (*BKC) IV PUSH (08:27)
[2023-09-15] MEDS: LACTATED RINGERS 1,000 ML 30 ML IV CONT (08:52)
[2023-09-15 08:57] VITALS: BP 96/43; PULSE 56; RESP 12; O2SAT 97
--- NOTE | 2023-09-15 08:57 | W.PM.PROC2 ---
Procedure Note - Detailed Date of Procedure 09/15/23 Pre-op Diagnosis endometrial hypertrophy on ultrasound Post-op Diagnosis Same Procedure Performed 1. Hysteroscopy 2. Uterine curettings Surgeon Mahendra Quinones MD Anesthesia MAC Findings Upon dilation of cervical canal thin watery yellow fluid drained, hysteroscopic exam revealed scarring from prior ablation with small polyp on the anterior portion of the endometrial cavity Description of Procedure Patient was prepped and draped usual manner for this procedure. Cervix was dilated to allow the hysteroscope to be placed with findings as noted above. Shavings were obtained through the hysteroscope as well as general curettings. No significant bleeding, patient are procedure well and was sent to recovery room stable condition. Estimated Blood Loss 10 Drains No Packing No Pathology Yes Complications No immediate complications Condition Stable Disposition PACU [facility] Billing Surgery - Charge Forward: Surgery Billing
[2023-09-15 09:25] VITALS: BP 102/53; PULSE 56; RESP 12; O2SAT 97
== END 2023-09-15 10:01 | disposition home or self-care (01) ==
PROVIDERS: PCP Emergency Medicine; Visit Provider Obstetrics & Gynecology
PROC: 0U5B8ZZ Destruction of Endometrium, Via Natural or Artificial Opening Endoscopic (ICD-10-PCS; CPT 58563; principal; 2023-09-15 09:00)
DX: R93.89 Abnormal findings on diagnostic imaging of other specified body structures (principal); N85.02 Endometrial intraepithelial neoplasia [EIN]; I10 Essential (primary) hypertension; E55.9 Vitamin D deficiency, unspecified; K22.2 Esophageal obstruction; K20.0 Eosinophilic esophagitis; Z98.890 Other specified postprocedural states; Z98.1 Arthrodesis status; Z90.49 Acquired absence of other specified parts of digestive tract; Z80.3 Family history of malignant neoplasm of breast; Z82.49 Family history of ischemic heart disease and other diseases of the circulatory system
CPT/HCPCS: 58558; 88305; A9270; J1100; J1885; J2405; J2704; J3010; J7120

== ENCOUNTER 2024-04-17 15:12 | Outpatient (CLI) | payer MEDICARE, SELFPAY | END 2024-04-17 15:13 | disposition home or self-care (01) | PROVIDERS: PCP Emergency Medicine; Visit Provider Emergency Medicine | DX: Z12.31 Encounter for screening mammogram for malignant neoplasm of breast (principal) | CPT/HCPCS: 77063; 77067 ==

== ENCOUNTER 2024-06-01 00:18 | Day surgery (SDC) | payer MEDICARE, SELFPAY ==
[2024-05-23 11:22] VITALS: BMI 29.3
--- NOTE | 2024-05-23 11:45 | PC.NURSE ---
Report to the Outpatient Waiting Room, entrance under the green pavilion located off [facility], at time __7:45AM on date ___06/01/24____. Planned Procedure Time: ___9:45AM .? Time changes happen often and if your time is changed the preop area will call you the afternoon before. - You and your visitor will be asked to self-screen and do not enter if you have any COVID symptoms. Please call surgeon if you need to reschedule. - A mask is optional within the hospital at this time. Patients may have clear liquids (water, carbonated beverages, clear teas, apple juice) until 3 hours prior to surgery (6:45AM) with a maximum of 20 ounces. - No food from midnight until time of surgery and no smoking, or chewing tobacco (or any form of nicotine). No chewing gum, candy or mints. Take only the following medications with a SIP of water on the morning of surgery: EYE DROPS DO NOT STOP ANY OF YOUR OTHER PRESCRIPTION MEDICATIONS PRIOR TO SURGERY EXCEPT THE FOLLOWING Medications to discontinue per physician __HOLD VITAMINS/SUPPLEMENTS AND NSAIDS(IBUPROFEN) 7 DAYS PRE-OP PER DR LEON PER PATIENT. Date to take last dose 05/24/24. Please no make-up, nail persian, hairspray, perfume, deodorant, or body powder the day of surgery.? No jewelry (including any body piercings) or valuables the day of surgery, leave them at home.? Please take a shower or bath the night before, or the morning of, surgery with an antibacterial soap.? Wear comfortable, loose fitting clothing.? Children are encouraged to wear pajamas. - Jewelry must be removed prior to entering the operating room.? Rings and piercings that are not removed may be cut off. - The hospital will not accept responsibility for valuables.? - Please leave all valuables, including medications, at home the day of surgery. If you are going home after surgery, a licensed racing driver must drive you home.? - NO public transportation without another adult if you receive anesthesia. - We recommend that an adult stay with you for 24 hours following discharge. - We also recommend that you do not drive, make important decision, drink alcoholic beverages, or take any drugs that were not prescribed by your health care provider for at least 24 hours after your discharge time. Follow any additional instructions given to you from your surgeon. Telephone instructions given to ___PATIENT and asked if any additional questions and then verbalized understanding. Patient advised to call surgeon office or pre surgery nurse liaison [phone] if any additional questions.
--- NOTE | 2024-05-26 12:38 | P.HP_ITS ---
H&P: [facility] History of Present Illness Date/Time: 05/26/24 12:38 Chief Complaint: stress incontinence Narrative: symptomatic stress incontinence and desires a surgical procedure for correction Review of Systems Review of Systems: All systems reviewed & are unremarkable except as noted in HPI and below PMFSH Past Medical History Medical History Eosinophilic esophagitis Schatzki's ring of distal esophagus (~2017) Hiatal hernia Vitamin D deficiency Headache Migraine Hypertension Surgical History Surgical History H/O gynecological procedure 09/15/23 Hysteroscopy, Uterine curettings History of back surgery (~1993) cyst removed from back Benign H/O breast biopsy (~1988) S/P balloon dilatation of esophageal stricture (~2017) History of salpingo-oophorectomy (~2016) Dr. Foster History of endometrial ablation (~1984) Balloon ablation History of cholecystectomy Family History Family History Father Diabetes mellitus, Onset Age: 72 Acute myocardial infarction Mother Hypertension, Onset Age: 98 Other Breast cancer 2 maternal aunts Social History Social History Social History: Patient has been since April of 2021. She had been for almost 50 years prior to her 's . They raised 2 sons. 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 She is a lifelong nonsmoker and does not drink alcohol use illicit substances. Code status: Full code Smoking status: Never smoker Second hand tobacco smoke exposure: No Alcohol intake: current Drinks per week: 0 Alcohol use details: rarely Substance use: never Substance use type: does not use Current Housing: Decline to Answer Concerned About Future Housing: Decline to Answer Difficulty Paying Gas/Electric Bills: Decline to Answer Difficulty Paying for Meds: Decline to Answer Currently Unemployed: Decline to Answer Education: Decline to Answer Difficulty w/ Childcare or Family Care: Decline to Answer Living arrangements: alone Additional living arrangements comments: Occupation/Education: retired Gender identity (if verbalized by the patient): Female Sexual Orientation (if Verbalized by the Patient): Straight or Heterosexual Spiritual care concerns: No Meds Home Medications and Allergies Home Medications ?Medication ?Instructions ?Recorded ?Confirmed ?Type flaxseed oil 1,200 mg BYMOUTH DAILY 06/19/23 05/23/24 History antiarthritic combination no.2 900 900 mg PO BID 07/27/23 05/23/24 History mg tablet (glucosamine-chondroitin) calcium carbonate (Calcium 500) 500 mg PO BID 07/27/23 05/23/24 History loratadine 10 mg tablet (Claritin) 10 mg PO DAILY 07/27/23 05/23/24 History magnesium 200 mg tablet 200 mg PO HS 07/27/23 05/23/24 History nut. tx for PKU, no.49 2 gram-34 1 ea PO DAILY 07/27/23 05/23/24 History kcal/100 mL oral liquid (Glytactin Restore 10 PE) ibuprofen 400 mg tablet 400 mg PO TID PRN pain #10 tabs 09/15/23 05/23/24 Rx nadolol 40 mg tablet See Rx Instructions .Route 11/30/23 05/23/24 Rx .COMPLEX #90 tabs omeprazole 20 mg capsule,delayed 20 mg PO DAILY #90 caps 12/02/23 05/23/24 Rx release fluticasone propionate 50 See Rx Instructions .Route 02/28/24 05/23/24 Rx mcg/actuation nasal .COMPLEX #48 grams spray,suspension IMPRIMIS DROPS 1 drp LEFT EYE TID 05/23/24 05/23/24 History Allergies Allergy/AdvReac Type Severity Reaction Status Date / Time codeine Allergy Severe Chest Pain Verified 05/23/24 11:14 Exam Narrative: urethral mobility documented Assessment and Plan Assessment and plan (1) PARAG (stress urinary incontinence, female): Code(s): N39.3 - Stress incontinence (female) (male) Status: Acute Assessment and Plan: plan for urethral sling. Risks, benefits, alternatives are outlined in office chart
--- OUTSIDE RECORDS SUMMARY | 2024-06-01 00:20 | XMS_ITS | Referral Summary ---
Author Organization [facility] [place] [address] Address [address] [place] [address] Care Team Providers Care Assistant Shift Supervisor Name Role Phone Oneil Wood MD Primary Care Provide r Mahendra Quinones MD Unavailable [phone] Encounters Date Type Department Care Team Description 04/05/2024 1:30 PM [employer] Office Visit [facility] Obstetrics and Gynecology [address] [facility] Advanced [facility] 13th [place] [address] [place] [address] Teena Jasmine NP Encounter for routine cancer follow-up (Primary Dx); Endometrial cancer (HCC); Healthcare maintenance from Last 3 Months Allergies Active Allergy Reactions Criticality Noted Date Comments Acetaminophen-Codeine Other (See comment s),Chest tightness Medium 08/15/2019 Chest pain Medications fluticasone propionate (FLONASE) 50 mcg/actuation nasal sprayIndications :Allergic Rhinitis Administer 1 spray into each nostril 2 (two) times a day 4 Active nadoloL (CORGARD) 40 mg tabletIndication s:hypertension,m igraine Take 1 tablet (40 mg total) by mouth nightly 4 Active omeprazole (PriLOSEC) 20 mg capsuleIndicatio ns:Stress Ulcer Prophylaxis Take 1 capsule (20 mg total) by mouth every morning 4 Active glucosam-chondro itin-diet cb25 116-100 mg capsuleIndicatio ns:supplement Take 1 capsule by mouth 2 (two) times a day Active FLAXSEED ORALIndications: supplement Take 1,200 mg by mouth every morning Active calcium carbonate-vitami n D3 (CALTRATE 600 + D) 1500 mg (600 mg elemental) -400 units per tabletIndication s:supplement Take 1 tablet by mouth 2 (two) times a day Active UNABLE TO FINDIndications: supplement Take 1 each by mouth 2 (two) times a day Med Name: Restore soft gel Active magnesium glycinate (MAG GLYCINATE ORAL)Indications :supplement Take 250 mg by mouth nightly Active loratadine (CLARITIN) 10 mg tabletIndication s:Allergic Rhinitis Take 1 tablet (10 mg total) by mouth nightly Active acetaminophen (TYLENOL) 500 mg tabletIndication s:Pain Take 2 tablets (1,000 mg total) by mouth every 6 (six) hours as needed for pain Active ciprofloxacin (CILOXAN) 0.3 % ophthalmic solution 5 Active naproxen (NAPROSYN) 500 mg tablet Take 1 tablet (500 mg total) by mouth 4 Active Active Problems Problem Noted Date Diagnosed Date Endometrial cancer 10/05/2023 Cancer Staging:Pathologic stage from 11/17/2023:FIGO Stage IA(pT1a, pN0, cM0, MMRd-, p53-) - Signed by Teena Jasmine, FILTERS ASSEMBLER on 04/03/2024 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 Immunizations Immunization Administration Dates Next Due Influenza, Quad, Adjuvantate d, Intramuscular 12/07/2022,12/23/2021,11/26/2020 Influenza, Quadrivalent, Hig h Dose, Preservative Free, Intrr 11/24/2019 Influenza, Trivalent, Adjuva nted, Intramuscular 11/10/2018,11/13/2017 Influenza, Trivalent, High D ose, Split, Preservative Free, Intramuscular 11/08/2016,11/30/2015 Influenza, Trivalent, IM (MDV) 01/15/2014,2011 Influenza, Trivalent, Preser vative Free, Intramuscular 01/02/2015 Pneumococcal Conjugate PCV 13 11/05/2014 Pneumococcal Polysaccharide PPV23 11/30/2015 RSV Vaccine, Pref, Recombina nt, Subunit, Adjuvanted, PF, IM (Arexvy) 03/25/2023 Tdap 03/30/2017 ZOSTER LIVE 05/09/2014 Social History Tobacco Use Types Packs/Day Years Used Date Smoking Tobacco: Never Passive Smoke Exposure: Never Smokeless Tobacco: Never Tobacco Cessation:Counseling Given: No AUDIT-C Answer Date Recorded Q1: How often do you have a drink containing alc ohol? Monthly or less 11/17/2023 Q2: How many drinks containi ng alcohol do you have on a typical day when you are drinking? 1 or 2 11/17/2023 Q3: How often do you have si x or more drinks on one occasion? Never 11/17/2023 Personal Safety Answer Date Recorded Have you ever been in or are you currently in a harmful physical or emotional relationship or is someone making you feel afraid or unsafe? Denies 11/17/2023 Comments No Sex and Gender Information Value Date Recorded Sex Assigned at Not on file Legal Sex Female 3:29 PM [employer] Gender Identity Female 03/20/2020 7:11 PM [employer] Sexual Orientation Not on file Last Filed Vital Signs Vital Sign Reading Time Taken Comments Blood Pressure 119/81 04/05/2024 1:22 PM [employer] Pulse 62 04/05/2024 1:22 PM [employer] Temperature 36.9 C (98.4 F) 04/05/2024 1:22 PM [employer] Respiratory Rate 16 04/05/2024 1:22 PM [employer] Oxygen Saturation 96% 04/05/2024 1:22 PM [employer] Inhaled Oxygen Concentration - - Weight 80.5 kg (177 lb 6.4 oz) 04/05/2024 1:22 P M [employer] Height 164 cm (5' 4.57 ) 04/05/2024 1:22 PM [employer] Body Mass Index 29.92 04/05/2024 1:22 PM [employer] Plan of Treatment Not on file Insurance MEDICARE [facility] MEDICARE [employer] MEDICARE SUPPLEMENT MEDICARE [facility] MEDICARE SUPPLEMENT Advance Directives For more information, please contact: [phone] Documents on File Type Date Recorded 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
--- OUTSIDE RECORDS SUMMARY | 2024-06-01 00:20 | XMS_ITS | Clinical Summary ---
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 Gender Identity Not on file Sexual Orientation Not on file Plan of Treatment Health Maintenance Due Date Last Done Comments DEXA Bone Density 1945 Hepatitis C Virus (HCV) Screening 1945 Zoster Immunization (2 of 3) 07/04/2014 05/09/2014 Respiratory Syncytial Virus (RSV) Immunization (Adult) (1 - 1-dose 75+ series) 2022 Influenza Immunization (#1) 10/16/202311/14, 11/10/2018, 11/13/2017, Additional history exists SARS-COV-2 Immunization ( season) 2023 Pneumococcal Immunization (50+ years) Completed 11/30/2015, 11/05/2014 DTaP/Tdap/Td Immunization Discontinued 03/30/2017 TdaP Immunization Completed 03/30/2017 Hepatitis B Immunization Aged Out No longer eligible based on patient's age to complete this topic Meningococcal Immunization (ACWY) Aged Out No longer eligible based on patient's age to complete this topic Rotavirus Immunization Aged Out No lo nger eligible based on patient's age to complete this topic
--- OUTSIDE RECORDS SUMMARY | 2024-06-01 00:20 | XMS_ITS ---
Author Organization [facility] [address] Address [address] [place] [address] Care Team Providers Care Casino Slot Supervisor Name Role Phone Oneil Wood MD Primary Care Provide r Mahendra Quinones MD Unavailable [phone] Active Problems Problem Noted Date Diagnosed Date Endometrial cancer 10/05/2023 Cancer Staging:Pathologic stage from 11/17/2023:FIGO Stage IA(pT1a, pN0, cM0, MMRd-, p53-) - Signed by Teena Jasmine NP on 04/03/2024 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 Current Treatment and Therapy Plans No current plan information found. Past Treatment and Therapy Plans No past plan information found. Lifetime Dose Tracking * Chemical Lifetime Dose Automatic Entry Manual Entr y DLP 732 mGycm 732 mGycm 0 mGycm
--- OUTSIDE RECORDS SUMMARY | 2024-06-01 00:20 | XMS_ITS | Clinical Summary ---
Author Organization [facility] [address] Address [address] [place] [address] Care Team Providers Care Screenplay Writer Name Role Phone Oneil Wood MD Primary Care Provide r Mahendra Quinones MD Unavailable [phone] Allergies Active Allergy Reactions Criticality Noted Date [...] NP on 04/03/2024 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 Encounters Date Type Department Care Team Description 04/05/2024 1:30 PM LEGAL ADVISOR Office Visit [facility] Obstetrics and Gynecology [address] [facility] Advanced Medicine 13th [place] [address] [place] [id number] Teena Jasmine NP Encounter for routine cancer follow-up (Primary Dx); Endometrial cancer (HCC); Healthcare maintenance from Last 3 Months Immunizations Immunization Administration Dates Next Due Influenza, [...] (Arexvy) 03/25/2023 Tdap 03/30/2017 ZOSTER LIVE 05/09/2014 Surgical History Surgery Date Site/Laterality Comments CHOLECYSTECTOMY 02/15/1984 - 02/13/1985 TUBAL LIGATION 02/15/2016 - 02/13/2017 and oophorectomy for ?endometriosis? BREAST BIOPSY 02/15/1988 - 02/13/1989 ABLATION 02/14/1997 - 02/13/1998 uterine SINUS ENDOSCOPY 02/14/2017 - 02/13/2018 DILATION AND CURETTAGE OF UTERUS 09/15/2023 SALPINGOOPHORECTOMY 02/15/2016 - 02/13/2017 Medical History Medical History Date Comments Hypertension Headache GERD (gastroesophageal reflux disease) Family History Medical History Relation Name Comments Diabetes Father Heart attack Father Cholecystitis Mother Kidney failure Mother Arthritis Sister Anesthesia problems Neg Hx Relation Name Status Comments Child 1 Alive Child 2 Alive Father Mother Sister Alive Social History Tobacco Use Types Packs/Day Years [...] on file Legal Sex Female 3:29 PM LEGAL ADVISOR Gender Identity Female 03/20/2020 7:11 PM LEGAL ADVISOR Sexual Orientation Not on file Obstetrics History Para Term AB IAB SAB Ectopic Multiple Livin g Live Births 3 2 2 1 2 Date Outcome GA Total Labor Labor/2nd/3rd Weight Sex Type Anes PTL Tresa A1 A5 Name Clin Term Term AB Last Filed Vital Signs Vital Sign Reading Time Taken Comments Blood Pressure 119/81 04/05/2024 1:22 PM LEGAL ADVISOR Pulse 62 04/05/2024 1:22 PM LEGAL ADVISOR Temperature 36.9 C (98.4 F) 04/05/2024 1:22 PM LEGAL ADVISOR Respiratory Rate 16 04/05/2024 1:22 PM LEGAL ADVISOR Oxygen Saturation 96% 04/05/2024 1:22 PM LEGAL ADVISOR Inhaled Oxygen Concentration - - Weight 80.5 kg (177 lb 6.4 oz) 04/05/2024 1:22 P M LEGAL ADVISOR Height 164 cm (5' 4.57 ) 04/05/2024 1:22 PM LEGAL ADVISOR Body Mass Index 29.92 04/05/2024 1:22 PM LEGAL ADVISOR Plan of Treatment Health Maintenance Due Date Last Done Comments Depression Screening 1945 Hepatitis C Screening 1945 Osteoporosis Screening-Bone Density Scan 1945 Hepatitis B Screening 1965 Well Visit 65+ 2012 Zoster Vaccine (2 of 3) 07/04/2014 05/09/2014 Covid-19 Vaccine (2023-2 5 season) 2023 12/07/2022, 12/23/2021, 01/02/2021, Additional history exists Influenza Vaccine (#1) 2023 , 12/23/2021, 11/26/2020, Additional history exists Fall Risk Assessment 11/16/2024 11/17/2023 DTaP/Tdap/Td Vaccine (2 - Td or Tdap) 03/30/2027 03/30/2017 Pneumococcal vaccine 65+ Completed 11/30/2015, 10/16 Insurance [facility]ICARE [facility] MEDICARE [facility] MEDICARE SUPPLEMENT MEDICARE [facility] MEDICARE SUPPLEMENT Advance Directives For more information, please contact: [phone] Documents on File Type Date Recorded Patient Celebrity Manager Expl anation ADVANCE DIRECTIVE 11/17/2023 6:58 AM Power of Manager Quality Systems-Medical Care Teams Screenplay Writer Relationship Specialty Start Date End Date Oneil Wood MD [address] [facility] [place] [place] [address] PCP - General 03/23/17 Mahendra Quinones MD [address] [place] [address] Referring Physician Obstetrics and Gynecology 04/03/24
[2024-06-01 07:02] VITALS: BP 123/66; PULSE 61; RESP 18; TEMP 36.5; O2SAT 99
--- NOTE | 2024-06-01 07:15 | WPDHPUPDATE1 ---
History and Physical Update Update Date/Time: 06/01/24 07:15 History and Physical has been reviewed, including an updated exam of the patient. There are NO changes in the patient's condition. Risks, benefits, and alternatives have been discussed and questions answered. Patient agrees to proceed with procedure.
[2024-06-01] MEDS: LACTATED RINGERS 1,000 ML 30 ML IV CONT (07:35)
[2024-06-01 07:42] VITALS: BMI 30.4
[2024-06-01] MEDS: BUPIVACAINE/EPINEPHRINE 0.5% 50 ML VIAL 30 ML INFILTRATE (08:21)
--- NOTE | 2024-06-01 08:23 | P.PNAN_ITS ---
Anes - Initial Pre Proc Eval Procedure: Operation Date: 06/01/24 08:15 Proposed Procedures p Urethral Sling - Blaine Olivares MD Date/Time: 06/01/24 08:23 Surgeon: Blaine Olivares MD Pre Op Diagnosis: stress incont Patient Data Age: 79 Gender: F Height: 1.65 m Weight: 83 kg Last Vital Signs Temp 36.5 C 06/01/24 07:02 Pulse 61 06/01/24 07:02 Resp 18 06/01/24 07:02 BP 123/66 06/01/24 07:02 Pulse Ox 99 06/01/24 07:02 O2 Del Method Room Air 06/01/24 07:02 Allergies Allergy/AdvReac Type Severity Reaction Status Date / Time codeine Allergy Severe Chest Pain Verified 06/01/24 07:41 Home Medications ?Medication ?Instructions ?Recorded ?Confirmed ?Type flaxseed oil 1,200 mg BYMOUTH DAILY 06/19/23 06/01/24 History antiarthritic combination no.2 900 900 mg PO BID 07/27/23 06/01/24 History mg tablet (glucosamine-chondroitin) calcium carbonate (Calcium 500) 500 mg PO BID 07/27/23 06/01/24 History loratadine 10 mg tablet (Claritin) 10 mg PO DAILY 07/27/23 06/01/24 History magnesium 200 mg tablet 200 mg PO HS 07/27/23 06/01/24 History nut. tx for PKU, no.49 2 gram-34 1 ea PO DAILY 07/27/23 05/23/24 History kcal/100 mL oral liquid (Glytactin Restore 10 PE) ibuprofen 400 mg tablet 400 mg PO TID PRN pain #10 tabs 09/15/23 06/01/24 Rx nadolol 40 mg tablet See Rx Instructions .Route 11/30/23 06/01/24 Rx .COMPLEX #90 tabs omeprazole 20 mg capsule,delayed 20 mg PO DAILY #90 caps 12/02/23 06/01/24 Rx release fluticasone propionate 50 See Rx Instructions .Route 02/28/24 05/23/24 Rx mcg/actuation nasal .COMPLEX #48 grams spray,suspension IMPRIMIS DROPS 1 drp LEFT EYE TID 05/23/24 05/23/24 History Patient hx anesthesia problems: other (slow to wake) Family hx anesthesia problems: none Results Review: All pre-operative results and documents have been reviewed as part of the pre- operative evaluation. [facility] Past Medical History Medical History Eosinophilic esophagitis Schatzki's ring of distal esophagus (~2017) Hiatal hernia Vitamin D deficiency Headache Migraine Hypertension Surgical History Surgical History H/O gynecological procedure 09/15/23 Hysteroscopy, Uterine curettings History of back surgery (~1993) cyst removed from back Benign H/O breast biopsy (~1988) S/P balloon dilatation of esophageal stricture (~2017) History of salpingo-oophorectomy (~2016) Dr. Foster History of endometrial ablation (~1984) Balloon ablation History of cholecystectomy Family History Family History Father Diabetes mellitus, Onset Age: 72 Acute myocardial infarction Mother Hypertension, Onset Age: 98 Other Breast cancer 2 maternal aunts Social History Social History Social History: Patient has been since April of 2021. She had been for almost 50 years prior to her 's . They raised 2 sons. 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 She is a lifelong nonsmoker and does not drink alcohol use illicit substances. Code status: Full code Smoking status: Never smoker Second hand tobacco smoke exposure: No Alcohol intake: current Drinks per week: 0 Alcohol use details: rarely Substance use: never Substance use type: does not use Current Housing: Decline to Answer Concerned About Future Housing: Decline to Answer Difficulty Paying Gas/Electric Bills: Decline to Answer Difficulty Paying for Meds: Decline to Answer Currently Unemployed: Decline to Answer Education: Decline to Answer Difficulty w/ Childcare or Family Care: Decline to Answer Living arrangements: alone Additional living arrangements comments: Occupation/Education: retired Gender identity (if verbalized by the patient): Female Sexual Orientation (if Verbalized by the Patient): Straight or Heterosexual Spiritual care concerns: No Anes - Eval Final PreProcedure Day of Procedure 06/01/24 08:23 Patient weight: obese Heart: regular rate and rhythm Lungs: clear to auscultation Airway: Mallampati scale class III Neurological: alert and oriented Last oral intake: >/= 8 hours ASA classification: II Emergent: no Anesthetic plan: proceed Anesthesia type and monitoring: general Results Review: All pre-operative results and documents have been reviewed as part of the pre- operative evaluation. Informed Consent: The patient's anesthetic plan and its attendant risks and benefits were discussed with the patient/family/POA. Questions were solicited and answers provided to the satisfaction of the patient/family/POA.
[2024-06-01] MEDS: ceFAZolin 2 GM/D5W 50 ML 2 GM/50 ML BAG IVPB (08:32)
[2024-06-01 09:01] VITALS: BP 89/48; PULSE 62; RESP 14; O2SAT 95
--- NOTE | 2024-06-01 09:08 | W.PM.PROC2 ---
Procedure Note - Detailed Date of Procedure 06/01/24 Pre-op Diagnosis stress incont Post-op Diagnosis Same Procedure Performed mid urethral sling cystoscopy Surgeon Blaine Olivares MD Anesthesia MAC and Local Indications This is a female with confirm stress urinary incontinence. She desires surgical correction. She understands the risks of bleeding, infection, injury to the urinary tract, vaginal mesh extrusion, urinary tract mesh erosion, obstructive voiding requiring a secondary procedure, hip and leg pain, dyspareunia, inability to improve overactive bladder symptoms. She agrees to proceed. Description of Procedure She was correctly identified. Informed consent obtained. She was brought the operating room. She was given appropriate anesthesia. She was given appropriate perioperative antibiotics. A time-out performed. I marked out the site of the inner thigh incisions. I anesthetized the skin and made those incisions. I anesthetized the anterior vaginal wall over the mid urethra. I made a 1 cm incision. I dissected out laterally taking great care not to injure the refilled vaginal wall. I passed the helical trocars. First on the left. Then on the right. I did this from the thigh incision towards the vaginal incision. The sling was connected to the trocars and brought out through the thigh incision. I tensioned the sling appropriately. I cut and the plastic sheaths. I then closed the incision with 2 0 Vicryl. On cystoscopy there is no tumors or surgical artifact. There was no surgical artifact in the urethra. I cut the excess sling material. Close incisions with glue. She was awakened and transferred to the PACU in stable condition. Implants Urethral sling Estimated Blood Loss 20 Drains No Packing No Pathology None sent Complications No immediate complications Condition Stable Disposition PACU
[2024-06-01 09:15] VITALS: BP 97/52; PULSE 62; RESP 14; O2SAT 95
[2024-06-01 09:35] VITALS: BP 117/55; PULSE 53; RESP 14
== END 2024-06-01 10:31 | disposition home or self-care (01) ==
PROVIDERS: PCP Emergency Medicine; Visit Provider Urology
PROC: (CPT 57288; principal; 2024-06-01 08:15)
DX: N39.3 Stress incontinence (female) (male) (principal); E66.9 Obesity, unspecified; Z68.30 Body mass index [BMI] 30.0-30.9, adult
CPT/HCPCS: 57288; C1771; J0690; J1100; J1885; J2003; J2405; J2704; J3010; J7030; J7120

== ENCOUNTER 2024-11-17 14:41 | Emergency (ER) | payer MEDICARE, SELFPAY ==
--- OUTSIDE RECORDS SUMMARY | 2024-11-17 14:43 | XMS_ITS | Clinical Summary ---
Author Organization [facility] [address] Address [address] [place] [address] Care Team Providers Care Healthcare Network Pricing Consultant Name Role Phone Oneil Wood MD Primary Care Provide r Mahendra Quinones MD Unavailable [phone] Allergies Active Allergy Reactions Criticality Noted Date [...] Encounters Date Type Department Care Team Description 10/24/2024 2:15 PM CDT Office Visit [facility] Obstetrics and Gynecology [address] [facility] Advanced Medicine [address] [place] [address] [place] [address] Juanis Meza MD Endometrial cancer (Primary Dx) from Last 3 Months Immunizations Immunization Administration [...] on file Legal Sex Female 3:29 PM SENIOR ASIC DESIGN ENGINEER Gender Identity Female 03/20/2020 7:11 PM SENIOR ASIC DESIGN ENGINEER Sexual Orientation Not on file Obstetrics History Para Term AB IAB SAB Ectopic Multiple Livin g Live Births 3 2 2 1 2 Date Outcome GA Total Labor Labor/2nd/3rd Weight Sex Type Anes PTL Tresa A1 A5 Name Clin Term Term AB Last Filed Vital Signs Vital Sign Reading Time Taken Comments Blood Pressure 122/79 10/24/2024 2:49 PM CDT Pulse 61 10/24/2024 2:49 PM CDT Temperature 36.9 C (98.4 F) 10/24/2024 2:49 PM CDT Respiratory Rate 12 10/24/2024 2:49 PM CDT Oxygen Saturation 97% 10/24/2024 2:49 PM CDT Inhaled Oxygen Concentration - - Weight 83.7 kg (184 lb 9.6 oz) 10/24/2024 2:49 P M CDT Height 164 cm (5' 4.57) 04/05/2024 1:22 PM SENIOR ASIC DESIGN ENGINEER Body Mass Index 31.13 04/05/2024 1:22 PM SENIOR ASIC DESIGN ENGINEER Plan of Treatment Health Maintenance Due Date Last Done Comments Depression Screening 1945 Hepatitis C Screening 1945 Osteoporosis Screening-Bone Density Scan 1945 Hepatitis B Screening 1965 Well Visit 65+ 2012 Zoster Vaccine (2 of 3) 07/04/2014 05/09/2014 Covid-19 Vaccine (2024-2 6 season) 2024 12/07/2022, 12/23/2021, 01/02/2021, Additional history exists Influenza Vaccine (#1) 2024 , 12/23/2021, 11/26/2020, Additional history exists Fall Risk Assessment 11/16/2024 11/17/2023 DTaP/Tdap/Td Vaccine (2 - Td or Tdap) 03/30/2027 03/30/2017 Pneumococcal vaccine 65+ Completed 11/30/2015, 10/16 Insurance MEDICARE [facility] MEDICARE [facility] MEDICARE SUPPLEMENT MEDICARE [place] [facility] MEDICARE SUPPLEMENT Advance Directives For more information, please contact: [phone] Documents on File Type Date Recorded Patient Warehouser Expl anation ADVANCE DIRECTIVE 11/17/2023 6:58 AM Power of Custom Home Installer-Medical Care Teams Healthcare Network Pricing Consultant Relationship Specialty Start Date End Date Oneil Wood MD [address] [place] [address] PCP - General 03/23/17 Mahendra Quinones MD [address] [place] [address] Referring Physician Obstetrics and Gynecology 04/03/24
--- OUTSIDE RECORDS SUMMARY | 2024-11-17 14:43 | XMS_ITS ---
Author Organization [facility] [address] Address [address] [place] [address] Care Team Providers Care Squaring Machine Operator Name Role Phone Oneil Wood MD Primary Care Provide r Mahendra Quinones MD Unavailable [phone] Active Problems Problem Noted Date Diagnosed Date [...]
[2024-11-17 14:51] VITALS: BP 117/62; PULSE 62; RESP 16; TEMP 36.1; O2SAT 98
--- NOTE | 2024-11-17 15:19 | ED_ITS ---
HPI - URI/Sore Throat General Chief Complaint: Upper Respiratory Infection Stated Complaint: sinus infection Time Seen by Provider: 11/17/24 15:00 Source: patient and RN notes reviewed Mode of arrival: ambulatory Limitations: no limitations History of Present Illness HPI Narrative: 79-year-old female presents Express Care complaining of right facial pressure and congestion started this morning. Patient also reports some nasal drainage, she denies any fevers, body aches, chills, chest pain, shortness of breath, sore throat, cough, earache, nausea, vomiting, diarrhea, abdominal pain, urinary symptoms, or any other symptoms. Patient has not taken anything [id number] to help with symptoms. Patient says she is going out of town and traveling out of the country in 3 days. Related Data Home Medications ?Medication ?Instructions ?Recorded ?Confirmed ?Last Taken ?Type flaxseed oil 1,200 mg BYMOUTH DAILY 06/1808/07/24 05/25/24 History antiarthritic combination no.2 900 900 mg PO BID 07/2608/07/24 05/25/24 History mg tablet (glucosamine-chondroitin) calcium carbonate (Calcium 500) 500 mg PO BID 07/27/23 08/07/24 05/25/24 History magnesium 200 mg tablet 200 mg PO HS 07/27/2305/25/24 History nut. tx for PKU, no.49 2 gram-34 1 ea PO DAILY 4 08/07/24 3 Days Ago History kcal/100 mL oral liquid (Glytactin ~0 09/12/23 Restore 10 PE) Allergies Allergy/AdvReac Type Severity Reaction Status Date / Time codeine Allergy Severe Chest Pain Verified 08/07/24 13:30 Review of Systems Review of Systems: CONSTITUTIONAL: Denies fever, chills, or sweats. EYES: Denies visual changes, redness, or discharge. ENT: Denies rhinorrhea, sore throat, or otalgia. Positive for congestion and right facial pressure. CARDIOVASCULAR: Denies chest pain, palpitations, or edema. RESPIRATORY: Denies cough or dyspnea. GASTROINTESTINAL: Denies abdominal pain, nausea, vomiting, or diarrhea. GENITOURINARY: Denies dysuria or hematuria. SKIN: Denies rash or itching. MUSCULOSKELETAL: Denies back pain, joint pain, or myalgia. NEUROLOGIC: Denies headache, numbness, or weakness. PSYCHIATRIC: Denies anxiety or depression. All other systems reviewed are negative, except as documented in HPI. [facility] Past Medical History Medical History Eosinophilic esophagitis Schatzki's ring of distal esophagus (~2017) Hiatal hernia Vitamin D deficiency Headache Migraine Hypertension Surgical History Surgical History History of midurethral sling procedure History of cataract surgery H/O: hysterectomy H/O gynecological procedure 09/15/23 Hysteroscopy, Uterine curettings History of back surgery (~1993) cyst removed from back Benign H/O breast biopsy (~1988) S/P balloon dilatation of esophageal stricture (~2017) History of salpingo-oophorectomy (~2016) Dr. Foster History of endometrial ablation (~1984) Balloon ablation History of cholecystectomy Family History Family History Father Diabetes mellitus, Onset Age: 72 Acute myocardial infarction Mother Hypertension, Onset Age: 98 Other Breast cancer 2 maternal aunts Social History Social History Social History: Patient has been since April of 2021. She had been for almost 50 years prior to her 's . They raised 2 sons. 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 She is a lifelong nonsmoker and does not drink alcohol use illicit substances. Code status: Full code Smoking status: Never smoker Second hand tobacco smoke exposure: No Alcohol intake: current Alcohol use details: rarely Substance use: never Substance use type: does not use Do You Feel Safe in your Home?: Yes Lack of Transportation: No Lack of Food: Never True Current Housing: I Have Housing Concerned About Future Housing: No Difficulty Paying Gas/Electric Bills: No Difficulty Paying for Meds: No Currently Unemployed: No Education: Master's Degree or Higher Difficulty w/ Childcare or Family Care: No Living arrangements: alone Additional living arrangements comments: Occupation/Education: retired Gender identity (if verbalized by the patient): Female Sexual Orientation (if Verbalized by the Patient): Straight or Heterosexual Spiritual care concerns: No Comments At the time of my signature, I reviewed and agree with the nursing past medical, surgical, social, and family history. There is no relevant family history pertinent to the patient complaint. Exam Narrative: GENERAL: This is a well-nourished, well-developed adult, in no apparent distre ss. They are non ill-appearing, nontoxic appearing. HEAD: normocephalic, atraumatic. EYES: Sclera clear/white. Conjunctiva normal. Vision is grossly intact. Extraocular movements intact EARS: External ears normal, auditory canals clear and without drainage, TMs normal without perforation. Hearing grossly intact. NOSE: External nose normal with no obvious nasal discharge, nasal turbinates boggy, no rhinorrhea. THROAT: Mucous membranes moist, posterior pharynx clear, without erythema or swelling. Uvula midline. Postnasal drip present. NECK: Neck supple, non-tender without lymphadenopathy, masses or thyromegaly. CARDIOVASCULAR: Regular rate and rhythm without murmurs, gallops, or rubs. RESPIRATORY: Clear to auscultation. Breath sounds equal bilaterally. No wheezes, rales, or rhonchi. SKIN: warm, Dry, intact with no suspicious lesions or rash, good texture and turgor. NEURO: awake, alert, and oriented to person, place and time. There were no obvious focal neurologic abnormalities. EXTREMITIES: No joint tenderness, effusion, or edema noted. BACK: Nontender without deformity. No CVA tenderness. Course Course Emergency Course: Portions of this record may have been created with voice recognition software Level of Care: Express Care Visit Vital Signs Vital signs: Vital Signs Temperature 97 F L 11/17/24 14:51 Pulse Rate 62 11/17/24 14:51 Respiratory Rate 16 11/17/24 14:51 Blood Pressure 117/62 11/17/24 14:51 Pulse Oximetry 98 11/17/24 14:51 Oxygen Delivery Room Air 11/17/24 14:51 Temperature 97 F L 11/17/24 14:51 Pulse Rate 62 11/17/24 14:51 Respiratory Rate 16 11/17/24 14:51 Blood Pressure 117/62 11/17/24 14:51 Pulse Oximetry 98 11/17/24 14:51 Oxygen Delivery Room Air 11/17/24 14:51 Reviewed MDM - URI/Sore Throat MDM Narrative Medical decision making narrative: Appears likely patient has allergic rhinitis. Recommend antihistamines, Flonase, azelastine nasal spray. Advised patient to wash symptoms as this may be the start of a viral illness. However physical exam findings appear to be consistent with allergic rhinitis. Discussed physical exam findings. Advised supportive measures and signs/symptoms to go to the ER. Pt is appropriate for outpt treatment and f/u. Differential Diagnosis Differential diagnosis: Likely upper respiratory infection, sinusitis, viral infection, pharyngitis and other (Allergic rhinitis) Critical Care Time Critical Care Time Critical Care Time: No Discharge Plan Discharge Clinical Impression: Allergic rhinitis Qualifiers: Allergic rhinitis trigger: other Allergic rhinitis seasonality: seasonal Qualified Code(s): J30.89 - Other allergic rhinitis Patient Disposition: Home Condition: Stable Instructions: Allergies (ED) Additional Instructions: Continue to take your daily Claritin as directed. You may continue to use her Flonase as well as needed for congestion. I also recommend [id number] as azelastine nasal spray, 2 sprays each nostril daily for congestion. Drink plenty of fluids. Tylenol or ibuprofen as needed for pain. Follow instructions on the bottle. Follow-up with PCP in 3-5 days. Go to ER if he develops any breathing problems, chest pain, nausea, vomiting, or any serious concerns. Patient Language: Irish Prescriptions: No Action calcium carbonate [Calcium 500] 500 mg calcium (1,250 mg) tablet,chewable 500 mg PO BID magnesium 200 mg tablet 200 mg PO HS glucosamine-chondroitin 900 mg tablet 900 mg PO BID Glytactin Restore 10 PE 2 gram-34 kcal/100 mL liquid 1 ea PO DAILY ibuprofen 400 mg tablet 400 mg PO TID PRN (Reason: pain) Qty: 10 0RF flaxseed oil 1,200 mg capsule 1,200 mg BYMOUTH DAILY omeprazole 20 mg capsule,delayed release(DR/EC) 20 mg PO DAILY Qty: 90 2RF nadolol 40 mg tablet See Rx Instructions .ROUTE .COMPLEX Qty: 90 2RF Dose Instruction: TAKE 1 TABLET BY MOUTH EVERY DAY Patient Comments: EVENING Rx Instructions: TAKE 1 TABLET BY MOUTH EVERY DAY Follow-up/Referrals: Oneil Wood MD [Primary Care Provider, Internal Medicine] Time of Disposition: 15:18
== END 2024-11-17 15:22 | disposition home or self-care (01) ==
PROVIDERS: PCP Emergency Medicine
DX: J30.2 Other seasonal allergic rhinitis (principal); I10 Essential (primary) hypertension; K20.0 Eosinophilic esophagitis
CPT/HCPCS: 99211; G0463